=== PATIENT | male | born 1955 | race Caucasian/White ===

== ENCOUNTER 2016-06-02 15:23 | Inpatient (IN) ==
--- NOTE | 2016-06-02 15:47 | Emergency Department Note ---
Disposition Clinical Impression: DKA (diabetic ketoacidoses) Qualifiers: Diabetes mellitus type: other specified (including MARIBELL) Diabetes mellitus complication detail: without coma Qualified Code(s): E13.10 - Other specified diabetes mellitus with ketoacidosis without coma Disposition: Admitted As Inpatient Condition: Serious General Adult HPI - General Chief complaint: ED Recheck/Abnormal Lab/Rx Stated complaint: High blood sugar Time Seen by Provider: 06/02/16 15:35 Source: patient Limitations: no limitations Nursing Notes Reviewed: Yes Vital Signs Reviewed: Yes - History of Present Illness HPI Narrative: Mr. Fowler, a 60yo male, [place] [facility]not the [facility]) via EMS with CC: hyperglycemia. EMS glucometer returned with error (excess of 600). Patient is known DM insulin dependent. Patient states his blood glucose has been fine. Denies current hyperglycemia. He does not know why the ambulance brought him here. PMH: CVA, DM. Habits: current everyday tobacco smoker. Remote use illicit substances and EtOH. Admits: hyperglycemia, thirst, emesis (non-bloody, non-bilious). Denies: fever, chills, chest pain, abdominal pain. Pain Scale: 0 - Related Data Home Medications Medication Instructions Recorded Confirmed Amlodipine [Norvasc] 5 mg PO DAILY 06/02/16 06/02/16 Folic Acid 2 mg PO DAILY 06/02/16 06/02/16 Gabapentin [Neurontin] 300 mg PO TID 06/02/16 06/02/16 Insulin Glargine [Lantus] 45 unit SQ HS 06/02/16 06/02/16 Isoniazid [Inh] 300 mg PO DAILY 06/02/16 06/02/16 Metformin HCl [Glucophage] 1,000 mg PO BIDWM 06/02/16 06/02/16 Pyridoxine (B-6) [Vitamin B-6] 50 mg PO DAILY 06/02/16 06/02/16 Thiamine (B-1) [Vitamin B-1] 100 mg PO DAILY 06/02/16 06/02/16 Allergies Allergy/AdvReac Type Severity Reaction Status Date / Time tape Allergy Blister Uncoded 06/02/16 15:37 All systems ED: reviewed and negative except as stated. (as per HPI) Past Medical History - Past Medical History Medical history: Reports: CVA, diabetes Psychiatric history: Reports: no psych history - Social History Smoking Status: Current every day smoker Smokeless Tobacco Status: No Alcohol use: Reports: unknown Drug use: Reports: unknown Physical Exam General: Patient is alert, oriented to self and location but not to situation or time, and in no acute distress. Evidence of emesis on patient's portillo and foot. HEENT: No facial asymmetry. Head is normocephalic and atraumatic. Trachea midline. Oral mucosa tacky. Cardiovascular: Heart regular rate and rhythm without clicks, rubs, gallops, or murmurs. No JVD. PMI nondisplaced. Respiratory: Symmetric chest rise with good respiratory effort. Bilateral breath sounds are clear without wheezing, crackles, or rhonchi. Abdomen: Obese. Bowel sounds present normoactive x-4 quadrants. Abdomen is soft, nondistended, and nontender. Psych: Patient's affect is appropriate for situation. - General Limitations: no limitations General appearance: alert Course Course Narrative: Will IV rehydrate the patient and perform extensive workup as we have no prior medical records on him. Patient does have altered mental status, the chronicity of which is unknown. No evidence of trauma. Source of infection unfound at this time. He [place] the [place] [facility]. He did not present to the [place] [facility]. He is eating ice chips and has vomited. EKG unremarkable. 16:30 Spoke with nursing as labwork has not been drawn. Nursing called out to lab. 17:30 Called lab. They have not received patient's serum. They will page lab draw stat. FLUID TOTALS (18:34) Liter #3 is infusing at this time. 1L via EMS 2L in ER Patient's lab work is returning. He is in DKA - VBG pH 7.14, (+) serum ketones. Serum glucose 1190. K 5.1. Will begin insulin drip at 5u/hr. Spoke with Dr. Benson, who agrees to accept the patient. Vital Signs Temperature 98.9 F 06/02/16 15:28 Pulse Rate 105 06/02/16 15:28 Respiratory Rate 18 06/02/16 15:28 Blood Pressure 138/87 06/02/16 15:28 O2 Sat by Pulse Oximetry 93 L 06/02/16 15:28 Temperature 98.9 F 06/02/16 15:28 Pulse Rate 88 06/02/16 16:54 Respiratory Rate 18 06/02/16 20:05 Blood Pressure 0/0 06/02/16 20:05 O2 Sat by Pulse Oximetry 94 L 06/02/16 16:54 Oxygen Delivery Oxygen Delivery Room Air Medical Decision Making - Lab Data Result diagrams: 06/02/16 18:07 06/02/16 17:46 Lab Results 06/02/16 06/02/16 06/02/16 Range/Units 16:25 16:26 17:46 WBC (4.3-11.1) K/mcL RBC (4.19-5.50) M/mcL Hgb (12.9-16.9) g/dL Hct (37.5-50.1) % MCV (83.0-100.0) fL MCH (28.0-33.3) pg MCHC (31.6-35.5) g/dL RDW (11.5-14.5) % Plt Count (140-400) K/mcL MPV (9.4-12.4) fL Immature Gran % (0-4) % Seg Neutrophils % % Lymphocytes % % Monocytes % % Eosinophils % % Basophils % % Neutrophils # (1.6-8.9) K/mcL Lymphocytes # (0.6-4.6) K/mcL Monocytes # (0.0-1.3) K/mcL Eosinophils # (0.0-0.6) K/mcL Basophils # (0.0-0.2) K/mcL VBG pH (7.32-7.42) pH Units VBG pCO2 (41-51) mmHg VBG pO2 (25-40) mmHg VBG HCO3 (21-27) mEq/L Sodium 133 L (136-145) mEq/L Potassium 5.1 H (3.5-4.5) mEq/L Chloride 100 (98-109) mEq/L Carbon Dioxide 20 (19-29) mEq/L BUN 15 (8-26) mg/dL Creatinine 2.51 H (0.72-1.25) mg/dL Est GFR ( Amer) 32 L (> 60) Est GFR (Non-Af Amer) 26 L (> 60) BUN/Creatinine Ratio 6 (6-26) Glucose 1190 H* (70-99) mg/dL POC Glucose > 600 H* > 600 H* (58-89) Calculated Osmolality 337 H (280-300) Calcium 9.7 (8.6-10.8) mg/dL Phosphorus 4.3 (2.3-4.7) mg/dL Magnesium 2.1 (1.6-2.6) mg/dL Total Bilirubin 0.8 (0.2-1.2) mg/dL AST 13 (5-34) Units/L ALT 22 (0-55) Units/L Alkaline Phosphatase 273 H (38-126) Units/L Troponin I (0-0.03) ng/mL Serum Total Protein 7.0 (6.0-8.3) g/dL Albumin 3.9 (3.5-5.0) g/dL Globulin 3.1 (2.4-3.5) g/dL Albumin/Globulin Ratio 1.3 (1.1-2.2) Beta-Hydroxybutyric Acd > 2.00 H (0.02-0.27) mmol/L Urine Color (Yellow) Urine Clarity (Clear) Urine pH (5.0-8.0) pH Units Ur Specific [place] (1.010-1.025) Urine Protein (Neg-Trace) mg/dL Urine Glucose (UA) (Normal) mg/dL Urine Ketones (Negative) mg/dL Urine Blood (Negative) Urine Nitrite (Negative) Urine Bilirubin (Negative) Urine Urobilinogen (Normal) mg/dL Ur Leukocyte Esterase (Negative) Urine Microscopic RBC (0-3) per hpf Urine Microscopic WBC (0-3) per hpf Ur Squamous Epith Cells (None-Few) per lpf Urine Bacteria (None-Few) per hpf Hyaline Casts (None-Few) per lpf Ur Culture Indicated? (NO) Urine Opiates Screen (Uqdfko=556) ng/mL Ur Barbiturates Screen (Oukyln=372) ng/mL Ur Phencyclidine Scrn (Cutoff=25) ng/mL Ur Amphetamines Screen (Hqwjbl=2638) ng/mL U Benzodiazepines Scrn (Zecfbe=338) ng/mL Urine Cocaine Screen (Cutoff= 300) ng/mL U Marijuana (THC) Screen (Cutoff = 50) ng/mL Ethyl Alcohol (0-10) mg/dL 02/16/17 02/16/17 02/16/17 Range/Units 17:46 17:46 17:46 WBC (4.3-11.1) K/mcL RBC (4.19-5.50) M/mcL Hgb (12.9-16.9) g/dL Hct (37.5-50.1) % MCV (83.0-100.0) fL MCH (28.0-33.3) pg MCHC (31.6-35.5) g/dL RDW (11.5-14.5) % Plt Count (140-400) K/mcL MPV (9.4-12.4) fL Immature Gran % (0-4) % Seg Neutrophils % % Lymphocytes % % Monocytes % % Eosinophils % % Basophils % % Neutrophils # (1.6-8.9) K/mcL Lymphocytes # (0.6-4.6) K/mcL Monocytes # (0.0-1.3) K/mcL Eosinophils # (0.0-0.6) K/mcL Basophils # (0.0-0.2) K/mcL VBG pH 7.18 L* (7.32-7.42) pH Units VBG pCO2 63 H (41-51) mmHg VBG pO2 21 L (25-40) mmHg VBG HCO3 23.5 (21-27) mEq/L Sodium (136-145) mEq/L Potassium (3.5-4.5) mEq/L Chloride (98-109) mEq/L Carbon Dioxide (19-29) mEq/L BUN (8-26) mg/dL Creatinine (0.72-1.25) mg/dL Est GFR ( Amer) (> 60) Est GFR (Non-Af Amer) (> 60) BUN/Creatinine Ratio (6-26) Glucose (70-99) mg/dL POC Glucose (58-89) Calculated Osmolality (280-300) Calcium (8.6-10.8) mg/dL Phosphorus (2.3-4.7) mg/dL Magnesium (1.6-2.6) mg/dL Total Bilirubin (0.2-1.2) mg/dL AST (5-34) Units/L ALT (0-55) Units/L Alkaline Phosphatase (38-126) Units/L Troponin I 0.00 (0-0.03) ng/mL Serum Total Protein (6.0-8.3) g/dL Albumin (3.5-5.0) g/dL Globulin (2.4-3.5) g/dL Albumin/Globulin Ratio (1.1-2.2) Beta-Hydroxybutyric Acd (0.02-0.27) mmol/L Urine Color (Yellow) Urine Clarity (Clear) Urine pH (5.0-8.0) pH Units Ur Specific [place] (1.010-1.025) Urine Protein (Neg-Trace) mg/dL Urine Glucose (UA) (Normal) mg/dL Urine Ketones (Negative) mg/dL Urine Blood (Negative) Urine Nitrite (Negative) Urine Bilirubin (Negative) Urine Urobilinogen (Normal) mg/dL Ur Leukocyte Esterase (Negative) Urine Microscopic RBC (0-3) per hpf Urine Microscopic WBC (0-3) per hpf Ur Squamous Epith Cells (None-Few) per lpf Urine Bacteria (None-Few) per hpf Hyaline Casts (None-Few) per lpf Ur Culture Indicated? (NO) Urine Opiates Screen (Rgojll=197) ng/mL Ur Barbiturates Screen (Hmeydg=720) ng/mL Ur Phencyclidine Scrn (Cutoff=25) ng/mL Ur Amphetamines Screen (Ibwdud=0899) ng/mL U Benzodiazepines Scrn (Qzfdle=111) ng/mL Urine Cocaine Screen (Cutoff= 300) ng/mL U Marijuana (THC) Screen (Cutoff = 50) ng/mL Ethyl Alcohol < 10 (0-10) mg/dL 06/02/16 06/02/16 06/02/16 Range/Units 18:07 18:30 18:30 WBC 17.3 H (4.3-11.1) K/mcL RBC 4.59 (4.19-5.50) M/mcL Hgb 14.1 (12.9-16.9) g/dL Hct 42.1 (37.5-50.1) % MCV 91.7 (83.0-100.0) fL MCH 30.7 (28.0-33.3) pg MCHC 33.5 (31.6-35.5) g/dL RDW 13.1 (11.5-14.5) % Plt Count 299 (140-400) K/mcL MPV 11.5 (9.4-12.4) fL Immature Gran % 0.6 (0-4) % Seg Neutrophils % 90.0 % Lymphocytes % 4.5 % Monocytes % 4.6 % Eosinophils % 0.0 % Basophils % 0.3 % Neutrophils # 15.6 H (1.6-8.9) K/mcL Lymphocytes # 0.8 (0.6-4.6) K/mcL Monocytes # 0.8 (0.0-1.3) K/mcL Eosinophils # 0.0 (0.0-0.6) K/mcL Basophils # 0.1 (0.0-0.2) K/mcL VBG pH (7.32-7.42) pH Units VBG pCO2 (41-51) mmHg VBG pO2 (25-40) mmHg VBG HCO3 (21-27) mEq/L Sodium (136-145) mEq/L Potassium (3.5-4.5) mEq/L Chloride (98-109) mEq/L Carbon Dioxide (19-29) mEq/L BUN (8-26) mg/dL Creatinine (0.72-1.25) mg/dL Est GFR ( Amer) (> 60) Est GFR (Non-Af Amer) (> 60) BUN/Creatinine Ratio (6-26) Glucose (70-99) mg/dL POC Glucose (58-89) Calculated Osmolality (280-300) Calcium (8.6-10.8) mg/dL Phosphorus (2.3-4.7) mg/dL Magnesium (1.6-2.6) mg/dL Total Bilirubin (0.2-1.2) mg/dL AST (5-34) Units/L ALT (0-55) Units/L Alkaline Phosphatase (38-126) Units/L Troponin I (0-0.03) ng/mL Serum Total Protein (6.0-8.3) g/dL Albumin (3.5-5.0) g/dL Globulin (2.4-3.5) g/dL Albumin/Globulin Ratio (1.1-2.2) Beta-Hydroxybutyric Acd (0.02-0.27) mmol/L Urine Color Yellow (Yellow) Urine Clarity Clear (Clear) Urine pH 6.0 (5.0-8.0) pH Units Ur Specific [place] <= 1.005 L (1.010-1.025) Urine Protein Negative (Neg-Trace) mg/dL Urine Glucose (UA) >=1000 H (Normal) mg/dL Urine Ketones 15 H (Negative) mg/dL Urine Blood Trace-lysed H (Negative) Urine Nitrite Negative (Negative) Urine Bilirubin Negative (Negative) Urine Urobilinogen Normal (Normal) mg/dL Ur Leukocyte Esterase Negative (Negative) Urine Microscopic RBC 0-3 (0-3) per hpf Urine Microscopic WBC 0-3 (0-3) per hpf Ur Squamous Epith Cells Moderate H (None-Few) per lpf Urine Bacteria None Seen (None-Few) per hpf Hyaline Casts None Seen (None-Few) per lpf Ur Culture Indicated? NO (NO) Urine Opiates Screen Negative (Vcrrux=356) ng/mL Ur Barbiturates Screen Negative (Thxqmq=234) ng/mL Ur Phencyclidine Scrn Negative (Cutoff=25) ng/mL Ur Amphetamines Screen Negative (Fdzake=4042) ng/mL U Benzodiazepines Scrn Negative (Eikzed=919) ng/mL Urine Cocaine Screen Negative (Cutoff= 300) ng/mL U Marijuana (THC) Screen Negative (Cutoff = 50) ng/mL Ethyl Alcohol (0-10) mg/dL - EKG Data EKG #1 EKG attestation: Yes I reviewed and interpreted this EKG. EKG results narrative: EKG dated May interpreted as sinus tachycardia with rate of 106. Normal intervals with [place] 162, QRS 99, QT/QTc 348/410. Left axis. Non-specific STT changes. no previous EKG for comparison.
--- NOTE | 2016-06-02 15:52 | Emergency Department Note ---
START Narrative - START START: 60-year-old male with past medical history of diabetes and psychiatric disease presents from psychiatric inpatient facility at the [facility] in [place] for blood sugar that read greater than 620 of care glucose. Patient states that he feels fine and has no complaints and he does not know why he is here. He does have dried emesis in his portillo as well as on his foot so he apparently vomited. He states he does not believe that he vomited. Otherwise, the patient is nontoxic appearing. He has mildly dry mucous membranes. He is not tachypneic. He has no signs of injury. Heart sounds are normal. Lungs are clear. Abdominal exam is benign. Abdomen soft, nontender, and without rigidity or guarding.
[2016-06-02] MEDS ORDERED: Ondansetron 4 MG/2 ML VIAL IV ONE (16:07)
[2016-06-02] MEDS: 0.9 % Sodium Chloride 1,000 ML IVC SCH ×4 (16:28→22:10)
[2016-06-02 18:03] LABS: VBG HCO3 23.5 mEq/L (21-27)
[2016-06-02 18:04] LABS: Beta-Hydroxybutyric Acid > 2.00 mmol/L (0.02-0.27)
[2016-06-02 18:05] LABS: VBG PH 7.18 pH Units (7.32-7.42)
[2016-06-02 18:13] LABS: Alanine Aminotransferase 22 Units/L (0-55); Albumin 3.9 g/dL (3.5-5.0); Albumin/Globulin Ratio 1.3 (1.1-2.2); Alkaline Phosphatase 273 Units/L (38-126); Aspartate Amino Transferase 13 Units/L (5-34); BUN/Creatinine Ratio 6 (6-26); Bilirubin,Total 0.8 mg/dL (0.2-1.2); Blood Urea Nitrogen 15 mg/dL (8-26); Calcium 9.7 mg/dL (8.6-10.8); Carbon Dioxide 20 mEq/L (19-29); Chloride 100 mEq/L (98-109); Globulin 3.1 g/dL (2.4-3.5); Magnesium 2.1 mg/dL (1.6-2.6); Phosphorous 4.3 mg/dL (2.3-4.7); Potassium 5.1 mEq/L (3.5-4.5); Sodium 133 mEq/L (136-145); eGFR For African Americans 32 (> 60); eGFR For Non-African Americans 26 (> 60)
[2016-06-02 18:23] LABS: Osmolality,Calculated 337 (280-300)
[2016-06-02 18:24] LABS: Basophils # 0.1 K/mcL (0.0-0.2); Basophils % 0.3 %; Hematocrit 42.1 % (37.5-50.1); Hemoglobin 14.1 g/dL (12.9-16.9); Immature Granulocytes % 0.6 % (0-4); Lymphocytes # 0.8 K/mcL (0.6-4.6); Lymphocytes % 4.5 %; Mean Corpuscular HGB Conc 33.5 g/dL (31.6-35.5); Mean Corpuscular Hemoglobin 30.7 pg (28.0-33.3); Mean Corpuscular Volume 91.7 fL (83.0-100.0); Mean Platelet Volume 11.5 fL (9.4-12.4); Monocytes # 0.8 K/mcL (0.0-1.3); Monocytes % 4.6 %; Neutrophils # 15.6 K/mcL (1.6-8.9); Platelet Count 299 K/mcL (140-400); Red Blood Count 4.59 M/mcL (4.19-5.50); Red Cell Distribution Width 13.1 % (11.5-14.5)
[2016-06-02 18:30] LABS: Glucose 1190 mg/dL (70-99)
--- NOTE | 2016-06-02 18:35 | Emergency Department Note ---
Disposition Clinical Impression: DKA (diabetic ketoacidoses) Disposition: Admitted As Inpatient Condition: Serious General Adult HPI - General Chief complaint: ED Recheck/Abnormal Lab/Rx Stated complaint: High blood sugar Time Seen by Provider: 06/02/16 15:35 Source: patient Limitations: no limitations - History of Present Illness Pain Scale: 0 - Related Data Home Medications Medication Instructions Recorded Confirmed Amlodipine [Norvasc] 5 mg PO DAILY 06/02/16 06/02/16 Folic Acid 2 mg PO DAILY 06/02/16 06/02/16 Gabapentin [Neurontin] 300 mg PO TID 06/02/16 06/02/16 Insulin Glargine [Lantus] 45 unit SQ HS 06/02/16 06/02/16 Isoniazid [Inh] 300 mg PO DAILY 06/02/16 06/02/16 Metformin HCl [Glucophage] 1,000 mg PO BIDWM 06/02/16 06/02/16 Pyridoxine (B-6) [Vitamin B-6] 50 mg PO DAILY 06/02/16 06/02/16 Thiamine (B-1) [Vitamin B-1] 100 mg PO DAILY 06/02/16 06/02/16 Allergies Allergy/AdvReac Type Severity Reaction Status Date / Time tape Allergy Blister Uncoded 06/02/16 15:37 Past Medical History - Past Medical History Medical history: Reports: CVA, diabetes Psychiatric history: Reports: no psych history - Social History Smoking Status: Current every day smoker Smokeless Tobacco Status: No Alcohol use: Reports: unknown Drug use: Reports: unknown Physical Exam - General Limitations: no limitations General appearance: alert Course - Reevaluation(s) Reevaluation #1: I saw the patient with the resident's, 'linus Rubio. Patient presents with vomiting and a reported elevated blood sugar. Here in the department he has altered mental status, the chronicity of which we do not know. He is trying to eat ice chips but did vomit here in the emergency department. The rest of his physical exam does not show any obvious acute medical issues. His belly exam is benign. Lab workup however shows a glucose of over 1000 and a pH of 7.13. Ketones are also elevated. This is diabetic ketoacidosis in a known diabetic. He has received 3 L of fluid from a so far. Will start the insulin drip now. He needs to be admitted to the hospital. We will be making that arrangement. His vital signs are good. He is watching TV and does not actually appear in any distress. Time: 18:37 Vital Signs Temperature 98.9 F 06/02/16 15:28 Pulse Rate 105 06/02/16 15:28 Respiratory Rate 18 06/02/16 15:28 Blood Pressure 138/87 06/02/16 15:28 O2 Sat by Pulse Oximetry 93 L 06/02/16 15:28 Temperature 97.6 F 06/02/16 20:28 Pulse Rate 87 06/02/16 20:28 Respiratory Rate 18 06/02/16 20:28 Blood Pressure 114/85 06/02/16 20:28 O2 Sat by Pulse Oximetry 97 06/02/16 20:28 Oxygen Delivery Oxygen Delivery Room Air Medical Decision Making - Lab Data Result diagrams: 06/02/16 18:07 06/02/16 17:46 Lab Results 06/02/16 06/02/16 06/02/16 Range/Units 16:25 16:26 17:46 WBC (4.3-11.1) K/mcL RBC (4.19-5.50) M/mcL Hgb (12.9-16.9) g/dL Hct (37.5-50.1) % MCV (83.0-100.0) fL MCH (28.0-33.3) pg MCHC (31.6-35.5) g/dL RDW (11.5-14.5) % Plt Count (140-400) K/mcL MPV (9.4-12.4) fL Immature Gran % (0-4) % Seg Neutrophils % % Lymphocytes % % Monocytes % % Eosinophils % % Basophils % % Neutrophils # (1.6-8.9) K/mcL Lymphocytes # (0.6-4.6) K/mcL Monocytes # (0.0-1.3) K/mcL Eosinophils # (0.0-0.6) K/mcL Basophils # (0.0-0.2) K/mcL VBG pH (7.32-7.42) pH Units VBG pCO2 (41-51) mmHg VBG pO2 (25-40) mmHg VBG HCO3 (21-27) mEq/L Sodium 133 L (136-145) mEq/L Potassium 5.1 H (3.5-4.5) mEq/L Chloride 100 (98-109) mEq/L Carbon Dioxide 20 (19-29) mEq/L BUN 15 (8-26) mg/dL Creatinine 2.51 H (0.72-1.25) mg/dL Est GFR ( Amer) 32 L (> 60) Est GFR (Non-Af Amer) 26 L (> 60) BUN/Creatinine Ratio 6 (6-26) Glucose 1190 H* (70-99) mg/dL POC Glucose > 600 H* > 600 H* (58-89) Calculated Osmolality 337 H (280-300) Calcium 9.7 (8.6-10.8) mg/dL Phosphorus 4.3 (2.3-4.7) mg/dL Magnesium 2.1 (1.6-2.6) mg/dL Total Bilirubin 0.8 (0.2-1.2) mg/dL AST 13 (5-34) Units/L ALT 22 (0-55) Units/L Alkaline Phosphatase 273 H (38-126) Units/L Troponin I (0-0.03) ng/mL Serum Total Protein 7.0 (6.0-8.3) g/dL Albumin 3.9 (3.5-5.0) g/dL Globulin 3.1 (2.4-3.5) g/dL Albumin/Globulin Ratio 1.3 (1.1-2.2) Beta-Hydroxybutyric Acd > 2.00 H (0.02-0.27) mmol/L Urine Color (Yellow) Urine Clarity (Clear) Urine pH (5.0-8.0) pH Units Ur Specific [place] (1.010-1.025) Urine Protein (Neg-Trace) mg/dL Urine Glucose (UA) (Normal) mg/dL Urine Ketones (Negative) mg/dL Urine Blood (Negative) Urine Nitrite (Negative) Urine Bilirubin (Negative) Urine Urobilinogen (Normal) mg/dL Ur Leukocyte Esterase (Negative) Urine Microscopic RBC (0-3) per hpf Urine Microscopic WBC (0-3) per hpf Ur Squamous Epith Cells (None-Few) per lpf Urine Bacteria (None-Few) per hpf Hyaline Casts (None-Few) per lpf Ur Culture Indicated? (NO) Urine Opiates Screen (Psalfn=227) ng/mL Ur Barbiturates Screen (Rlosna=239) ng/mL Ur Phencyclidine Scrn (Cutoff=25) ng/mL Ur Amphetamines Screen (Oadzan=7452) ng/mL U Benzodiazepines Scrn (Hkafdd=805) ng/mL Urine Cocaine Screen (Cutoff= 300) ng/mL U Marijuana (THC) Screen (Cutoff = 50) ng/mL Ethyl Alcohol (0-10) mg/dL 06/02/16 06/02/16 06/02/16 Range/Units 17:46 17:46 17:46 WBC (4.3-11.1) K/mcL RBC (4.19-5.50) M/mcL Hgb (12.9-16.9) g/dL Hct (37.5-50.1) % MCV (83.0-100.0) fL MCH (28.0-33.3) pg MCHC (31.6-35.5) g/dL RDW (11.5-14.5) % Plt Count (140-400) K/mcL MPV (9.4-12.4) fL Immature Gran % (0-4) % Seg Neutrophils % % Lymphocytes % % Monocytes % % Eosinophils % % Basophils % % Neutrophils # (1.6-8.9) K/mcL Lymphocytes # (0.6-4.6) K/mcL Monocytes # (0.0-1.3) K/mcL Eosinophils # (0.0-0.6) K/mcL Basophils # (0.0-0.2) K/mcL VBG pH 7.18 L* (7.32-7.42) pH Units VBG pCO2 63 H (41-51) mmHg VBG pO2 21 L (25-40) mmHg VBG HCO3 23.5 (21-27) mEq/L Sodium (136-145) mEq/L Potassium (3.5-4.5) mEq/L Chloride (98-109) mEq/L Carbon Dioxide (19-29) mEq/L BUN (8-26) mg/dL Creatinine (0.72-1.25) mg/dL Est GFR ( Amer) (> 60) Est GFR (Non-Af Amer) (> 60) BUN/Creatinine Ratio (6-26) Glucose (70-99) mg/dL POC Glucose (58-89) Calculated Osmolality (280-300) Calcium (8.6-10.8) mg/dL Phosphorus (2.3-4.7) mg/dL Magnesium (1.6-2.6) mg/dL Total Bilirubin (0.2-1.2) mg/dL AST (5-34) Units/L ALT (0-55) Units/L Alkaline Phosphatase (38-126) Units/L Troponin I 0.00 (0-0.03) ng/mL Serum Total Protein (6.0-8.3) g/dL Albumin (3.5-5.0) g/dL Globulin (2.4-3.5) g/dL Albumin/Globulin Ratio (1.1-2.2) Beta-Hydroxybutyric Acd (0.02-0.27) mmol/L Urine Color (Yellow) Urine Clarity (Clear) Urine pH (5.0-8.0) pH Units Ur Specific [place] (1.010-1.025) Urine Protein (Neg-Trace) mg/dL Urine Glucose (UA) (Normal) mg/dL Urine Ketones (Negative) mg/dL Urine Blood (Negative) Urine Nitrite (Negative) Urine Bilirubin (Negative) Urine Urobilinogen (Normal) mg/dL Ur Leukocyte Esterase (Negative) Urine Microscopic RBC (0-3) per hpf Urine Microscopic WBC (0-3) per hpf Ur Squamous Epith Cells (None-Few) per lpf Urine Bacteria (None-Few) per hpf Hyaline Casts (None-Few) per lpf Ur Culture Indicated? (NO) Urine Opiates Screen (Nmiuvo=108) ng/mL Ur Barbiturates Screen (Bivaeb=194) ng/mL Ur Phencyclidine Scrn (Cutoff=25) ng/mL Ur Amphetamines Screen (Llxeqx=5295) ng/mL U Benzodiazepines Scrn (Aaiwyh=981) ng/mL Urine Cocaine Screen (Cutoff= 300) ng/mL U Marijuana (THC) Screen (Cutoff = 50) ng/mL Ethyl Alcohol < 10 (0-10) mg/dL 06/02/16 06/02/16 06/02/16 Range/Units 18:07 18:30 18:30 WBC 17.3 H (4.3-11.1) K/mcL RBC 4.59 (4.19-5.50) M/mcL Hgb 14.1 (12.9-16.9) g/dL Hct 42.1 (37.5-50.1) % MCV 91.7 (83.0-100.0) fL MCH 30.7 (28.0-33.3) pg MCHC 33.5 (31.6-35.5) g/dL RDW 13.1 (11.5-14.5) % Plt Count 299 (140-400) K/mcL MPV 11.5 (9.4-12.4) fL Immature Gran % 0.6 (0-4) % Seg Neutrophils % 90.0 % Lymphocytes % 4.5 % Monocytes % 4.6 % Eosinophils % 0.0 % Basophils % 0.3 % Neutrophils # 15.6 H (1.6-8.9) K/mcL Lymphocytes # 0.8 (0.6-4.6) K/mcL Monocytes # 0.8 (0.0-1.3) K/mcL Eosinophils # 0.0 (0.0-0.6) K/mcL Basophils # 0.1 (0.0-0.2) K/mcL VBG pH (7.32-7.42) pH Units VBG pCO2 (41-51) mmHg VBG pO2 (25-40) mmHg VBG HCO3 (21-27) mEq/L Sodium (136-145) mEq/L Potassium (3.5-4.5) mEq/L Chloride (98-109) mEq/L Carbon Dioxide (19-29) mEq/L BUN (8-26) mg/dL Creatinine (0.72-1.25) mg/dL Est GFR ( Amer) (> 60) Est GFR (Non-Af Amer) (> 60) BUN/Creatinine Ratio (6-26) Glucose (70-99) mg/dL POC Glucose (58-89) Calculated Osmolality (280-300) Calcium (8.6-10.8) mg/dL Phosphorus (2.3-4.7) mg/dL Magnesium (1.6-2.6) mg/dL Total Bilirubin (0.2-1.2) mg/dL AST (5-34) Units/L ALT (0-55) Units/L Alkaline Phosphatase (38-126) Units/L Troponin I (0-0.03) ng/mL Serum Total Protein (6.0-8.3) g/dL Albumin (3.5-5.0) g/dL Globulin (2.4-3.5) g/dL Albumin/Globulin Ratio (1.1-2.2) Beta-Hydroxybutyric Acd (0.02-0.27) mmol/L Urine Color Yellow (Yellow) Urine Clarity Clear (Clear) Urine pH 6.0 (5.0-8.0) pH Units Ur Specific Greer <= 1.005 L (1.010-1.025) Urine Protein Negative (Neg-Trace) mg/dL Urine Glucose (UA) >=1000 H (Normal) mg/dL Urine Ketones 15 H (Negative) mg/dL Urine Blood Trace-lysed H (Negative) Urine Nitrite Negative (Negative) Urine Bilirubin Negative (Negative) Urine Urobilinogen Normal (Normal) mg/dL Ur Leukocyte Esterase Negative (Negative) Urine Microscopic RBC 0-3 (0-3) per hpf Urine Microscopic WBC 0-3 (0-3) per hpf Ur Squamous Epith Cells Moderate H (None-Few) per lpf Urine Bacteria None Seen (None-Few) per hpf Hyaline Casts None Seen (None-Few) per lpf Ur Culture Indicated? NO (NO) Urine Opiates Screen Negative (Cdkwax=674) ng/mL Ur Barbiturates Screen Negative (Ttwgkg=860) ng/mL Ur Phencyclidine Scrn Negative (Cutoff=25) ng/mL Ur Amphetamines Screen Negative (Beihiq=9704) ng/mL U Benzodiazepines Scrn Negative (Ecchwc=588) ng/mL Urine Cocaine Screen Negative (Cutoff= 300) ng/mL U Marijuana (THC) Screen Negative (Cutoff = 50) ng/mL Ethyl Alcohol (0-10) mg/dL Attestation Statement - Attestation Attestation: I, Dr. Shelby, examined this patient [id number] and my medical decision- making was reviewed with Drs. Pearson and Lam, Resident Physician. I agree with the documented findings, disposition and treatment plan as described except to the extent set forth below. Please see my progress notes for details.
[2016-06-02] MEDS ORDERED: Insulin Human Regular 100 UNIT in 0.9 % Sodium Chloride 100 ML IVC SCH ×3 (18:45→23:45)
[2016-06-02 18:59] LABS: Bilirubin,Urine Negative (Negative); Blood,Urine Trace-lysed (Negative); Clarity,Urine Clear (Clear); Color,Urine Yellow (Yellow); Glucose,Urine (UA) >=1000 mg/dL (Normal); Ketones,Urine 15 mg/dL (Negative); Leukocyte Esterase,Urine Negative (Negative); Nitrite,Urine Negative (Negative); Protein,Urine Negative (Neg-Trace); Specific Gravity,Urine <= 1.005 (1.010-1.025); Urobilinogen,Urine Normal (Normal)
[2016-06-02 19:00] LABS: Amphetamine Screen,Urine Negative ng/mL (Cutoff=1000); Barbiturate Screen,Urine Negative ng/mL (Cutoff=200); Benzodiazepines Screen,Urine Negative ng/mL (Cutoff=200); Cannabinoid Screen,Urine Negative ng/mL (Cutoff = 50); Cocaine Screen,Urine Negative ng/mL (Cutoff= 300); Opiate Screen,Urine Negative ng/mL (Cutoff=300); Phencyclidine Screen,Urine Negative ng/mL (Cutoff=25)
[2016-06-02 19:01] LABS: Bacteria,Urine None Seen per hpf (None-Few); Hyaline Casts,Urine None Seen per lpf (None-Few); RBC,Urine 0-3 per hpf (0-3); Squamous Epithelial Cell,Urine Moderate per lpf (None-Few); WBC,Urine 0-3 per hpf (0-3)
[2016-06-02] MEDS ORDERED: Insulin LISPRO 300 UNITS/3 ML VIAL SQ PRN (21:06)
[2016-06-02] MEDS ORDERED: *HR* Dextrose 50 % in Water (Syg) 50 ML SYRINGE IVP PRN (21:06)
[2016-06-02] MEDS ORDERED: Ondansetron 4 MG/2 ML VIAL IVP PRN (21:11)
[2016-06-02] MEDS ORDERED: Acetaminophen 325 MG TABLET PO PRN (21:11)
[2016-06-02] MEDS ORDERED: Naloxone 0.4 MG/ML INJ IVP PRN (21:11)
[2016-06-02] MEDS ORDERED: 0.9 % Sodium Chloride 1,000 ML IV SCH (21:15)
--- NOTE | 2016-06-02 21:18 | Internal Med History&Physical ---
Date of Encounter: 06/03/16 Time of Encounter: 20:00 Assessment and Plan (1) Essential hypertension Current visit: Yes Status: Acute Continue Norvasc. (2) Tobacco abuse disorder Current visit: Yes Status: Acute I have counseled patient on smoking cessation. (3) KONG (acute kidney injury) Current visit: Yes Status: Acute We will give a bolus of IV fluids and continue with normal saline. Avoid nephrotoxins. Monitor kidney function. (4) CKD (chronic kidney disease) stage 3, GFR 30-59 ml/min Current visit: Yes Status: Acute (5) Metabolic acidosis Current visit: Yes Status: Acute We will treat the cause of metabolic acidosis with IV insulin to reverse DKA. We will repeat VBG every 4 hours. If the pH drops below 7.10 will initiate sodium bicarbonate. (6) DKA (diabetic ketoacidoses) Current visit: Yes Status: Acute Patient is in severe DKA with blood glucose greater than 1000. He requires fluid resuscitation and IV insulin and careful monitoring and repletion of electrolytes as well as monitoring and correcting acid base disorders. We will initially initiate IV insulin drip per protocol at 0.1 units per kilogram per hour and titrate according to protocol. Monitor venous pH and add sodium bicarbonate if this continues to drop. The source of DKA is likely medication and diet noncompliance. There is no evidence of infection as a possible trigger for DKA. Urine tox screen was negative. I have counseled the patient regarding importance of diabetes diet and medication compliance. The patient is at high risk for morbidity mortality and complications due to IV insulin which requires hourly blood glucose monitoring and adjustment of infusional rate. Qualifiers: Diabetes mellitus type: type 2 Diabetes mellitus complication detail: without coma Qualified Code(s): E13.10 - Other specified diabetes mellitus with ketoacidosis without coma Internal Medicine - H&P: HPI Chief complaint: Weakness Admitted From: Emergency Dept Plans for Post Hospital Care: Home History of present illness: Mr. Fowler is a 60 year old male with past medical history significant for type 2 diabetes who is a very poor historian and says that he has had generalized weakness for the last 3 days, has been getting progressive. He noticed associated polyuria, no dysuria or frequency. Denies chest pain shortness of breath and fever. He never noticed elevated blood glucose at home and called EMS. A 10 point review of systems was negative except as above Family history was negative for premature coronary artery disease in both parents. Past Med Surg Social Fam HX - Past Medical History Medical history: CVA, diabetes Psychiatric history: no psych history - Past Surgical History Surgical History: no surgical history - Social History Smoking Status: Current every day smoker Smokeless Tobacco Status: No Alcohol use: unknown Drug use: unknown Internal Medicine - H&P: Meds Amlodipine [Norvasc] 5 mg PO DAILY 06/02/16 [History] Folic Acid 2 mg PO DAILY 06/02/16 [History] Gabapentin [Neurontin] 300 mg PO TID 06/02/16 [History] Insulin Glargine [Lantus] 45 unit SQ HS 06/02/16 [History] Isoniazid [Inh] 300 mg PO DAILY 06/02/16 [History] Metformin HCl [Glucophage] 1,000 mg PO BIDWM 06/02/16 [History] Pyridoxine (B-6) [Vitamin B-6] 50 mg PO DAILY 06/02/16 [History] Thiamine (B-1) [Vitamin B-1] 100 mg PO DAILY 06/02/16 [History] Allergies tape Allergy (Uncoded 06/02/16 15:37) Blister All Systems PM: A 10-system review of systems was performed and is negative for pertinent findings except as documented above in the HPI. - Constitutional Vitals: Temp Pulse Resp BP Pulse Ox 97.6 F 87 18 114/85 97 06/02/16 20:28 06/02/16 20:28 06/02/16 20:28 06/02/16 20:28 06/02/16 20:28 General appearance: Present: A&O X 3, no acute distress - Eye Eye exam: Present: PERRL, conjuntiva pink, sclera anicteric Pupils: Present: PERRL - Respiratory Respiratory exam: Present: CTAB. Absent: accessory muscle use, rales, rhonchi, wheezes - Cardiovascular Cardiovascular exam: Present: RRR, +S1, +S2. Absent: diastolic murmur, gallop, rubs, systolic murmur - GI/Abdominal GI/Abdominal exam: Present: normal bowel sounds, soft, no peritoneal signs. Absent: distended, tenderness - Extremities Exam Extremities exam: Present: pedal edema, warm, radial pulses palpable and symetrical. Absent: calf tenderness, cyanotic - Neurological Exam Neurological exam: Present: CN II-XII intact, oriented X3, no focal deficits. Absent: pronater drift, facial droop, speech deficit - Skin Skin exam: Present: dry, intact Internal Med - H&P Results - Labs CBC & Chem 7: 06/02/16 18:07 06/02/16 22:43
[2016-06-02 21:28] LABS: Calcium 9.3 mg/dL (8.6-10.8); Potassium 3.7 mEq/L (3.5-4.5)
[2016-06-02] MEDS ORDERED: 0.9 % Sodium Chloride w KCl 20 MEQ/1,000 ML MLS IVC ONE ×2 (21:37→23:54)
[2016-06-02] MEDS: Pantoprazole 40 MG VIAL IVP SCH (21:40)
[2016-06-02 22:52] LABS: VBG HCO3 23.1 mEq/L (21-27); VBG PH 7.2 pH Units (7.32-7.42)
[2016-06-02 23:02] LABS: Calcium 9.3 mg/dL (8.6-10.8); Potassium 3.4 mEq/L (3.5-4.5)
[2016-06-02] MEDS ORDERED: 0.9 % Sodium Chloride w KCl 20 MEQ/1,000 ML MLS IVC SCH (23:45)
[2016-06-02] MEDS ORDERED: D5% in 0.45% NACL w KCl 20 MEQ/1,000 ML MLS IVC PRN (23:58)
[2016-06-03 04:10] LABS: VBG HCO3 21.6 mEq/L (21-27); VBG PH 7.27 pH Units (7.32-7.42)
[2016-06-03 04:27] LABS: Albumin 3.3 g/dL (3.5-5.0); Albumin/Globulin Ratio 1.2 (1.1-2.2); Bilirubin,Total 0.5 mg/dL (0.2-1.2); Calcium 9.1 mg/dL (8.6-10.8); Globulin 2.7 g/dL (2.4-3.5); Magnesium 1.5 mg/dL (1.6-2.6); Potassium 3.1 mEq/L (3.5-4.5)
[2016-06-03 04:32] LABS: Basophils # 0.1 K/mcL (0.0-0.2); Basophils % 0.5 %; Eosinophils # 0.2 K/mcL (0.0-0.6); Eosinophils % 1.1 %; Hematocrit 37.2 % (37.5-50.1); Immature Granulocytes % 0.7 % (0-4); Lymphocytes # 2.7 K/mcL (0.6-4.6); Mean Corpuscular HGB Conc 33.6 g/dL (31.6-35.5); Mean Corpuscular Hemoglobin 29.7 pg (28.0-33.3); Mean Corpuscular Volume 88.4 fL (83.0-100.0); Monocytes # 1.3 K/mcL (0.0-1.3); Monocytes % 7.6 %; Neutrophils # 12.5 K/mcL (1.6-8.9); Platelet Count 302 K/mcL (140-400); Red Blood Count 4.21 M/mcL (4.19-5.50); Red Cell Distribution Width 12.7 % (11.5-14.5); Segmented Neutrophils % 74.1 %
[2016-06-03 04:54] LABS: Hemoglobin 12.5 g/dL (12.9-16.9)
[2016-06-03] MEDS: *HR* Heparin 5,000 UNIT/ML VIAL SQ SCH ×2 (05:40→17:01)
[2016-06-03] MEDS: 0.9 % Sodium Chloride 1,000 ML IVC SCH ×3 (07:32→18:00)
[2016-06-03] MEDS ORDERED: Insulin DETEMIR 100 UNIT/ML X5UNITS SQ ONE (08:25)
[2016-06-03 09:26] LABS: VBG HCO3 22.4 mEq/L (21-27); VBG PH 7.21 pH Units (7.32-7.42)
[2016-06-03] MEDS ORDERED: D5% in Water 1,000 ML IV PRN (09:36)
[2016-06-03] MEDS ORDERED: Dextrose Gel 15 GM PO PRN ×2 (09:36)
[2016-06-03 09:37] LABS: Calcium 9.2 mg/dL (8.6-10.8); Potassium 3.6 mEq/L (3.5-4.5)
[2016-06-03] MEDS: Pyridoxine (B-6) 50 MG TABLET PO SCH (10:28)
[2016-06-03] MEDS: amLODIPine 5 MG TABLET PO SCH (10:28)
[2016-06-03] MEDS: Thiamine (B-1) 100 MG TABLET PO SCH (10:28)
[2016-06-03] MEDS: Gabapentin 300 MG CAPSULE PO SCH ×3 (10:28→21:16)
[2016-06-03] MEDS: Folic Acid 1 MG TABLET PO SCH (10:29)
[2016-06-03] MEDS: Pantoprazole 40 MG VIAL IVP SCH (10:29)
[2016-06-03] MEDS: Insulin LISPRO 300 UNITS/3 ML VIAL SQ SCH ×3 (12:00→21:16)
--- NOTE | 2016-06-03 17:28 | Electrocardiograph Report ---
[place] [id number] Test Date: 2016-06-02 Pat Name: Louis Fowler Department: 103 Room: 2N13 Gender: M [employer]il Off Worker: : 1955 Requested By: Parish Fritz Order Number: [id number] Reading MD: Maegan Soto Measurements Intervals [place] Rate: 106 P: 31 TX: 162 QRS: 0 QRSD: 99 T: 59 QT: 348 QTc: 410 Interpretive Statements SINUS TACHYCARDIA NONSPECIFIC T-WAVE ABNORMALITY CONSIDER LEFT ATRIAL ENLARGEMENT ABNORMAL RHYTHM ECG Electronically Signed On 06-03-2016 17:26:16 EST by Maegan Soto
--- NOTE | 2016-06-03 17:30 | Internal Med Progress Note ---
Date of Encounter: 06/03/16 Time of Encounter: 10:00 - Assessment and plan (1) KONG (acute kidney injury) Current Visit: Yes Status: Acute Assessment and plan: Patient has a good intake. Will hydrated patient, f/u renal function. (2) CKD (chronic kidney disease) stage 3, GFR 30-59 ml/min Current Visit: Yes Status: Acute Assessment and plan: Due to diabetes. Follow-up renal function (3) DKA (diabetic ketoacidoses) Current Visit: Yes Status: Acute Assessment and plan: Resolved after treatment. Continue baseline the sliding scale insulin to control blood sugar. Qualifiers: Diabetes mellitus type: type 2 Diabetes mellitus complication detail: without coma Qualified Code(s): E13.10 - Other specified diabetes mellitus with ketoacidosis without coma (4) Essential hypertension Current Visit: Yes Status: Acute Assessment and plan: BP is stable continue home medication (5) Tobacco abuse disorder Current Visit: Yes Status: Acute Assessment and plan: Smoking cessation education (6) DVT prophylaxis Current Visit: Yes Status: Acute Assessment and plan: Heparin subcutaneously - Time Spent With Patient 25 - 35 minutes - Subjective Interval history: Patient is a 60-year-old male admitted for DKA, his past medical history is significant for type 2 diabetes, CKD, hypertension, and tobacco abuse. Patient was seen and examined. He is awake alert, oriented 3. Denies chest pain, shortness of breath, nausea vomiting, abdominal pain. Vitals are stable. His blood sugar level gets it down after insulin drip. AG closed. We will stop the insulin drip, started diet, keep patient on basal and sliding scale insulin. - Constitutional Vitals: Temp Pulse Resp BP Pulse Ox 98.2 F 77 16 125/78 97 06/03/16 15:34 06/03/16 15:44 06/03/16 15:34 06/03/16 15:34 06/03/16 15:34 General appearance: Present: A&O X 3, no acute distress - Head Head exam: Present: atraumatic, normocephalic - Eye Eye exam: Present: PERRL, conjuntiva pink, sclera anicteric Pupils: Present: PERRL - Neck Neck exam general surgery: Present: supple, trachea midline. Absent: lymphadenopathy - Respiratory Respiratory exam: Present: CTAB. Absent: accessory muscle use, rales, rhonchi, wheezes - Cardiovascular Cardiovascular exam: Present: RRR, +S1, +S2. Absent: diastolic murmur, gallop, rubs, systolic murmur - GI/Abdominal GI/Abdominal exam: Present: normal bowel sounds, soft, no peritoneal signs. Absent: distended, tenderness - Extremities Exam Extremities exam: Present: warm, radial pulses palpable and symetrical. Absent : calf tenderness, cyanotic, pedal edema - Neurological Exam Neurological exam: Present: CN II-XII intact, oriented X3, no focal deficits. Absent: pronater drift, facial droop, speech deficit - Skin Skin exam: Present: dry, intact Internal Medicine: Result - Labs CBC & Chem 7: 06/03/16 03:03 06/03/16 09:19 Labs: Short CBC 06/03/16 Range/Units 03:03 WBC 16.9 H (4.3-11.1) K/mcL Hgb 12.5 L D (12.9-16.9) g/dL Hct 37.2 L (37.5-50.1) % Plt Count 302 (140-400) K/mcL Neutrophils # 12.5 H (1.6-8.9) K/mcL BMP 06/02/16 06/02/16 06/03/16 21:06 22:43 03:03 Sodium 140 D 143 144 Potassium 3.7 D 3.4 L 3.1 L Chloride 107 111 H 116 H Carbon Dioxide 21 21 19 BUN 17 12 10 Creatinine 2.13 H 1.91 H 1.58 H Glucose 752 H* 647 H* 256 H Calcium 9.3 9.3 9.1 06/03/16 09:19 Sodium 144 Potassium 3.6 Chloride 116 H Carbon Dioxide 19 BUN 9 Creatinine 1.52 H Glucose 120 H Calcium 9.2 Liver Function 06/03/16 Range/Units 03:03 Total Bilirubin 0.5 (0.2-1.2) mg/dL AST 14 (5-34) Units/L ALT 16 (0-55) Units/L Alkaline Phosphatase 212 H (38-126) Units/L Albumin 3.3 L (3.5-5.0) g/dL Consult Discharge Plan - Plan [facility]errals: [facility]Primary Care Provider[facility] - 06/16/16 12:30 pm
[2016-06-03] MEDS: Nicotine 21 MG PATCH.TD24 TD SCH (20:10)
[2016-06-03] MEDS: Insulin DETEMIR 100 UNIT/ML X5UNITS SQ SCH (21:16)
[2016-06-04] MEDS: 0.9 % Sodium Chloride 1,000 ML IVC SCH (04:03)
[2016-06-04] MEDS: *HR* Heparin 5,000 UNIT/ML VIAL SQ SCH ×2 (06:22→16:55)
[2016-06-04 06:23] LABS: Basophils # 0.1 K/mcL (0.0-0.2); Basophils % 0.8 %; Eosinophils # 0.4 K/mcL (0.0-0.6); Eosinophils % 4.5 %; Hematocrit 37.7 % (37.5-50.1); Hemoglobin 11.8 g/dL (12.9-16.9); Immature Granulocytes % 0.4 % (0-4); Lymphocytes # 2.4 K/mcL (0.6-4.6); Mean Corpuscular HGB Conc 31.3 g/dL (31.6-35.5); Mean Corpuscular Hemoglobin 29.6 pg (28.0-33.3); Mean Platelet Volume 10.9 fL (9.4-12.4); Monocytes # 0.4 K/mcL (0.0-1.3); Monocytes % 4.9 %; Neutrophils # 5.6 K/mcL (1.6-8.9); Platelet Count 227 K/mcL (140-400); Red Blood Count 3.99 M/mcL (4.19-5.50); Red Cell Distribution Width 13.1 % (11.5-14.5); Segmented Neutrophils % 62.4 %
[2016-06-04 06:27] LABS: Mean Corpuscular Volume 94.5 fL (83.0-100.0)
[2016-06-04 06:39] LABS: Calcium 8.4 mg/dL (8.6-10.8)
[2016-06-04 06:55] LABS: Potassium 4.9 mEq/L (3.5-4.5)
[2016-06-04] MEDS: Gabapentin 300 MG CAPSULE PO SCH ×3 (07:46→20:42)
[2016-06-04] MEDS: Pyridoxine (B-6) 50 MG TABLET PO SCH (07:47)
[2016-06-04] MEDS: Folic Acid 1 MG TABLET PO SCH (07:47)
[2016-06-04] MEDS: Pantoprazole 40 MG VIAL IVP SCH (07:47)
[2016-06-04] MEDS: Thiamine (B-1) 100 MG TABLET PO SCH (07:47)
[2016-06-04] MEDS: Nicotine 21 MG PATCH.TD24 TD SCH (07:47)
[2016-06-04] MEDS: amLODIPine 5 MG TABLET PO SCH (07:47)
[2016-06-04] MEDS: Insulin LISPRO 300 UNITS/3 ML VIAL SQ SCH ×4 (07:55→20:43)
[2016-06-04] MEDS: Insulin DETEMIR 100 UNIT/ML X5UNITS SQ SCH ×3 (07:57→20:46)
--- NOTE | 2016-06-04 14:25 | Internal Med Progress Note ---
Date of Encounter: 06/04/16 Time of Encounter: 10:00 - Assessment and plan (1) KONG (acute kidney injury) Current Visit: Yes Status: Acute Assessment and plan: Patient has a good intake. Will cont hydrate patient, f/u renal function. His creatinine is at about his baseline now. (2) CKD (chronic kidney disease) stage 3, GFR 30-59 ml/min Current Visit: Yes Status: Acute Assessment and plan: Due to diabetes. Follow-up renal function (3) DKA (diabetic ketoacidoses) Current Visit: Yes Status: Acute Assessment and plan: Resolved after treatment. Continue baseline the sliding scale insulin to control blood sugar. Qualifiers: Diabetes mellitus type: type 2 Diabetes mellitus complication detail: without coma Qualified Code(s): E13.10 - Other specified diabetes mellitus with ketoacidosis without coma (4) Essential hypertension Current Visit: Yes Status: Acute Assessment and plan: BP is stable continue home medication (5) Tobacco abuse disorder Current Visit: Yes Status: Acute Assessment and plan: Smoking cessation education. On nicotine Patch (6) DVT prophylaxis Current Visit: Yes Status: Acute Assessment and plan: Heparin subcutaneously - Time Spent With Patient 25 - 35 minutes - Subjective Interval history: Patient is a 60-year-old male admitted for DKA, his past medical history is significant for type 2 diabetes, CKD, hypertension, and tobacco abuse. Patient was seen and examined. He is awake alert, oriented 3. Denies chest pain, shortness of breath, nausea vomiting, abdominal pain. Vitals are stable. His blood sugar level still high, will continueon sliding scale and increases basals insulin dose. Patient cannot tell how much insulin he injected by himself, he obviously need diabetic education. We will consult conservation educator. Also ask PT OT evaluation - Constitutional Vitals: Temp Pulse Resp BP Pulse Ox 97.8 F 82 18 121/90 97 06/04/16 11:56 06/04/16 11:56 06/04/16 11:56 06/04/16 11:56 06/04/16 11:56 General appearance: Present: A&O X 3, no acute distress - Head Head exam: Present: atraumatic, normocephalic - Eye Eye exam: Present: PERRL, conjuntiva pink, sclera anicteric Pupils: Present: PERRL - Neck Neck exam general surgery: Present: supple, trachea midline. Absent: lymphadenopathy - Respiratory Respiratory exam: Present: CTAB. Absent: accessory muscle use, rales, rhonchi, wheezes - Cardiovascular Cardiovascular exam: Present: RRR, +S1, +S2. Absent: diastolic murmur, gallop, rubs, systolic murmur - GI/Abdominal GI/Abdominal exam: Present: normal bowel sounds, soft, no peritoneal signs. Absent: distended, tenderness - Extremities Exam Extremities exam: Present: warm, radial pulses palpable and symetrical. Absent : calf tenderness, cyanotic, pedal edema - Neurological Exam Neurological exam: Present: CN II-XII intact, oriented X3, no focal deficits. Absent: pronater drift, facial droop, speech deficit - Skin Skin exam: Present: dry, intact Internal Medicine: Result - Labs CBC & Chem 7: 06/04/16 05:46 06/04/16 05:46 Labs: Short CBC 06/04/16 Range/Units 05:46 WBC 9.0 (4.3-11.1) K/mcL Hgb 11.8 L (12.9-16.9) g/dL Hct 37.7 (37.5-50.1) % Plt Count 227 (140-400) K/mcL Neutrophils # 5.6 (1.6-8.9) K/mcL BMP 06/04/16 05:46 Sodium 136 D Potassium 4.9 H D Chloride 110 H Carbon Dioxide 19 BUN 10 Creatinine 1.76 H Glucose 406 H Calcium 8.4 L Consult Discharge Plan - Plan [facility]errals: [facility] [Primary Care Provider] - 06/16/16 12:30 pm
[2016-06-05] MEDS: *HR* Heparin 5,000 UNIT/ML VIAL SQ SCH ×2 (05:50→18:30)
[2016-06-05 07:28] LABS: BUN/Creatinine Ratio 7 (6-26); Blood Urea Nitrogen 9 mg/dL (8-26); Calcium 8.7 mg/dL (8.6-10.8); Carbon Dioxide 18 mEq/L (19-29); Chloride 113 mEq/L (98-109); Glucose 255 mg/dL (70-99); Osmolality,Calculated 295 (280-300); Sodium 139 mEq/L (136-145); eGFR For African Americans > 60 (> 60); eGFR For Non-African Americans 53 (> 60)
[2016-06-05 08:08] LABS: Basophils % 0.6 %; Eosinophils # 0.6 K/mcL (0.0-0.6); Eosinophils % 8.2 %; Hematocrit 42.3 % (37.5-50.1); Immature Granulocytes % 0.6 % (0-4); Lymphocytes # 2.5 K/mcL (0.6-4.6); Lymphocytes % 35.3 %; Mean Corpuscular HGB Conc 32.4 g/dL (31.6-35.5); Mean Corpuscular Volume 92.6 fL (83.0-100.0); Mean Platelet Volume 11.8 fL (9.4-12.4); Monocytes # 0.3 K/mcL (0.0-1.3); Monocytes % 4.2 %; Neutrophils # 3.7 K/mcL (1.6-8.9); Platelet Count 232 K/mcL (140-400); Red Blood Count 4.57 M/mcL (4.19-5.50); Red Cell Distribution Width 13.2 % (11.5-14.5); Segmented Neutrophils % 51.1 %
[2016-06-05 08:16] LABS: Hemoglobin 13.7 g/dL (12.9-16.9)
[2016-06-05] MEDS: Insulin DETEMIR 100 UNIT/ML X5UNITS SQ SCH ×2 (08:18→21:00)
[2016-06-05] MEDS: Insulin LISPRO 300 UNITS/3 ML VIAL SQ SCH ×4 (08:18→21:00)
[2016-06-05] MEDS: Thiamine (B-1) 100 MG TABLET PO SCH (08:19)
[2016-06-05] MEDS: Pyridoxine (B-6) 50 MG TABLET PO SCH (08:19)
[2016-06-05] MEDS: Gabapentin 300 MG CAPSULE PO SCH ×3 (08:19→21:06)
[2016-06-05] MEDS: amLODIPine 5 MG TABLET PO SCH (08:19)
[2016-06-05] MEDS: Nicotine 21 MG PATCH.TD24 TD SCH (08:20)
[2016-06-05] MEDS: Folic Acid 1 MG TABLET PO SCH (08:20)
[2016-06-05 16:09] LABS: Amphetamines NEGATIVE ng/mL (Cutoff 30); Barbiturates NEGATIVE ng/mL (Cutoff 75); Benzodiazepines NEGATIVE ng/mL (Cutoff 75); Cocaine NEGATIVE ng/mL (Cutoff 30); Methadone NEGATIVE ng/mL (Cutoff 40); Methamphetamines NEGATIVE ng/mL (Cutoff 30); Opiates NEGATIVE ng/mL (Cutoff 30); Phencyclidine NEGATIVE ng/mL (Cutoff 15)
--- NOTE | 2016-06-05 16:48 | Internal Med Progress Note ---
Date of Encounter: 06/05/16 Time of Encounter: 10:00 - Assessment and plan (1) KOGN (acute kidney injury) Current Visit: Yes Status: Acute Assessment and plan: Patient has a good intake. Will cont hydrate patient, f/u renal function. His creatinine is at about his baseline now. (2) CKD (chronic kidney disease) stage 3, GFR 30-59 ml/min Current Visit: Yes Status: Acute Assessment and plan: Due to diabetes. Follow-up renal function (3) DKA (diabetic ketoacidoses) Current Visit: Yes Status: Acute Assessment and plan: Resolved after treatment. Continue baseline the sliding scale insulin to control blood sugar. Qualifiers: Diabetes mellitus type: type 2 Diabetes mellitus complication detail: without coma Qualified Code(s): E13.10 - Other specified diabetes mellitus with ketoacidosis without coma (4) Essential hypertension Current Visit: Yes Status: Acute Assessment and plan: BP is stable continue home medication (5) Tobacco abuse disorder Current Visit: Yes Status: Acute Assessment and plan: Smoking cessation education. On nicotine Patch (6) DVT prophylaxis Current Visit: Yes Status: Acute Assessment and plan: Heparin subcutaneously - Time Spent With Patient 25 - 35 minutes - Subjective Interval history: Patient is a 60-year-old male admitted for DKA, his past medical history is significant for type 2 diabetes, CKD, hypertension, and tobacco abuse. Patient was seen and examined. He is awake alert, oriented 3. Denies chest pain, shortness of breath, nausea vomiting, abdominal pain. Vitals are stable. His blood sugar level still high, will continueon sliding scale and increases basals insulin dose. Patient cannot tell how much insulin he injected by himself, he obviously need diabetic education. Patient has chock during Lunch. He has transient cough. We will change his diet to soft diet. Small evaluation in a.m. - Constitutional Vitals: Temp Pulse Resp BP Pulse Ox 97.4 F L 88 16 136/94 98 06/05/16 15:29 06/05/16 15:29 06/05/16 15:29 06/05/16 15:29 06/05/16 15:29 General appearance: Present: A&O X 3, no acute distress - Head Head exam: Present: atraumatic, normocephalic - Eye Eye exam: Present: PERRL, conjuntiva pink, sclera anicteric Pupils: Present: PERRL - Neck Neck exam general surgery: Present: supple, trachea midline. Absent: lymphadenopathy - Respiratory Respiratory exam: Present: CTAB. Absent: accessory muscle use, rales, rhonchi, wheezes - Cardiovascular Cardiovascular exam: Present: RRR, +S1, +S2. Absent: diastolic murmur, gallop, rubs, systolic murmur - GI/Abdominal GI/Abdominal exam: Present: normal bowel sounds, soft, no peritoneal signs. Absent: distended, tenderness - Extremities Exam Extremities exam: Present: warm, radial pulses palpable and symetrical. Absent : calf tenderness, cyanotic, pedal edema - Neurological Exam Neurological exam: Present: CN II-XII intact, oriented X3, no focal deficits. Absent: pronater drift, facial droop, speech deficit - Skin Skin exam: Present: dry, intact Internal Medicine: Result - Labs CBC & Chem 7: 06/05/16 06:21 06/05/16 06:21 Labs: Short CBC 06/05/16 Range/Units 06:21 WBC 7.2 (4.3-11.1) K/mcL Hgb 13.7 D (12.9-16.9) g/dL Hct 42.3 (37.5-50.1) % Plt Count 232 (140-400) K/mcL Neutrophils # 3.7 (1.6-8.9) K/mcL BMP 06/05/16 06:21 Sodium 139 Potassium 4.0 Chloride 113 H Carbon Dioxide 18 L BUN 9 Creatinine 1.37 H Glucose 255 H Calcium 8.7 Consult Discharge Plan - Plan [facility]errals: [facility] [Primary Care Provider] - 06/16/16 12:30 pm
[2016-06-06 04:49] LABS: Basophils % 0.5 %; Eosinophils # 0.5 K/mcL (0.0-0.6); Hematocrit 37.1 % (37.5-50.1); Immature Granulocytes % 0.8 % (0-4); Lymphocytes # 1.7 K/mcL (0.6-4.6); Lymphocytes % 22.9 %; Mean Corpuscular HGB Conc 31.8 g/dL (31.6-35.5); Mean Corpuscular Hemoglobin 29.5 pg (28.0-33.3); Mean Corpuscular Volume 92.8 fL (83.0-100.0); Mean Platelet Volume 11.1 fL (9.4-12.4); Monocytes # 0.4 K/mcL (0.0-1.3); Monocytes % 5.5 %; Neutrophils # 4.6 K/mcL (1.6-8.9); Platelet Count 208 K/mcL (140-400); Red Cell Distribution Width 13.1 % (11.5-14.5); Segmented Neutrophils % 63.3 %
[2016-06-06 04:54] LABS: Hemoglobin 11.8 g/dL (12.9-16.9)
[2016-06-06 05:11] LABS: BUN/Creatinine Ratio 10 (6-26); Blood Urea Nitrogen 13 mg/dL (8-26); Calcium 8.3 mg/dL (8.6-10.8); Carbon Dioxide 17 mEq/L (19-29); Chloride 104 mEq/L (98-109); Glucose 492 mg/dL (70-99); Osmolality,Calculated 290 (280-300); Potassium 4.1 mEq/L (3.5-4.5); Sodium 129 mEq/L (136-145); eGFR For African Americans > 60 (> 60); eGFR For Non-African Americans 54 (> 60)
[2016-06-06] MEDS: *HR* Heparin 5,000 UNIT/ML VIAL SQ SCH ×2 (06:11→17:27)
[2016-06-06] MEDS ORDERED: Insulin LISPRO 300 UNITS/3 ML VIAL SQ SCH ×2 (07:48→07:49)
[2016-06-06] MEDS: Pyridoxine (B-6) 50 MG TABLET PO SCH (08:28)
[2016-06-06] MEDS: Insulin LISPRO 300 UNITS/3 ML VIAL SQ SCH ×3 (08:28→17:41)
[2016-06-06] MEDS: Nicotine 21 MG PATCH.TD24 TD SCH (08:28)
[2016-06-06] MEDS: Folic Acid 1 MG TABLET PO SCH (08:29)
[2016-06-06] MEDS: amLODIPine 5 MG TABLET PO SCH (08:29)
[2016-06-06] MEDS: Thiamine (B-1) 100 MG TABLET PO SCH (08:29)
[2016-06-06] MEDS: Gabapentin 300 MG CAPSULE PO SCH ×3 (08:29→21:44)
--- NOTE | 2016-06-06 17:31 | Internal Med Progress Note ---
Date of Encounter: 06/06/16 Time of Encounter: 11:00 - Assessment and plan (1) KONG (acute kidney injury) Current Visit: Yes Status: Acute Assessment and plan: Patient has a good intake. Will cont hydrate patient, f/u renal function. His creatinine is at about his baseline now. (2) CKD (chronic kidney disease) stage 3, GFR 30-59 ml/min Current Visit: Yes Status: Acute Assessment and plan: Due to diabetes. Follow-up renal function (3) DKA (diabetic ketoacidoses) Current Visit: Yes Status: Acute Assessment and plan: Resolved after treatment. Continue baseline and sliding scale insulin to control blood sugar. Pt has poorly controlled Glu level. Non compliant. Qualifiers: Diabetes mellitus type: type 2 Diabetes mellitus complication detail: without coma Qualified Code(s): E13.10 - Other specified diabetes mellitus with ketoacidosis without coma (4) Essential hypertension Current Visit: Yes Status: Acute Assessment and plan: BP is stable continue home medication (5) Tobacco abuse disorder Current Visit: Yes Status: Acute Assessment and plan: Smoking cessation education. On nicotine Patch (6) DVT prophylaxis Current Visit: Yes Status: Acute Assessment and plan: Heparin subcutaneously - Time Spent With Patient 25 - 35 minutes - Subjective Interval history: Patient is a 60-year-old male admitted for DKA, his past medical history is significant for type 2 diabetes, CKD, hypertension, and tobacco abuse. Patient was seen and examined. He is awake alert, oriented 3. Denies chest pain, shortness of breath, nausea vomiting, abdominal pain. Vitals are stable. His blood sugar level still high, will continueon sliding scale and increases basals insulin dose. Patient cannot tell how much insulin he injected by himself, he obviously need diabetic education. Swallow evaluation done, diet order placed per evaluation. - Constitutional Vitals: Temp Pulse Resp BP Pulse Ox 98.0 F 100 16 137/90 94 L 06/06/16 15:33 06/06/16 16:07 06/06/16 15:33 06/06/16 15:33 06/06/16 15:33 General appearance: Present: A&O X 3, no acute distress - Head Head exam: Present: atraumatic, normocephalic - Eye Eye exam: Present: PERRL, conjuntiva pink, sclera anicteric Pupils: Present: PERRL - Neck Neck exam general surgery: Present: supple, trachea midline. Absent: lymphadenopathy - Respiratory Respiratory exam: Present: CTAB. Absent: accessory muscle use, rales, rhonchi, wheezes - Cardiovascular Cardiovascular exam: Present: RRR, +S1, +S2. Absent: diastolic murmur, gallop, rubs, systolic murmur - GI/Abdominal GI/Abdominal exam: Present: normal bowel sounds, soft, no peritoneal signs. Absent: distended, tenderness - Extremities Exam Extremities exam: Present: warm, radial pulses palpable and symetrical. Absent : calf tenderness, cyanotic, pedal edema - Neurological Exam Neurological exam: Present: CN II-XII intact, oriented X3, no focal deficits. Absent: pronater drift, facial droop, speech deficit - Skin Skin exam: Present: dry, intact Internal Medicine: Result - Labs CBC & Chem 7: 06/06/16 04:10 06/06/16 04:10 Labs: Short CBC 06/06/16 Range/Units 04:10 WBC 7.3 (4.3-11.1) K/mcL Hgb 11.8 L D (12.9-16.9) g/dL Hct 37.1 L (37.5-50.1) % Plt Count 208 (140-400) K/mcL Neutrophils # 4.6 (1.6-8.9) K/mcL BMP 06/06/16 04:10 Sodium 129 L D Potassium 4.1 Chloride 104 Carbon Dioxide 17 L BUN 13 Creatinine 1.36 H Glucose 492 H Calcium 8.3 L Consult Discharge Plan - Plan [facility]: [facility] [Primary Care Provider] - 06/16/16 12:30 pm
[2016-06-06] MEDS: Insulin DETEMIR 100 UNIT/ML X5UNITS SQ SCH (21:45)
[2016-06-07 05:05] LABS: Basophils % 0.6 %; Eosinophils # 0.6 K/mcL (0.0-0.6); Eosinophils % 8.6 %; Hematocrit 36.9 % (37.5-50.1); Hemoglobin 12.1 g/dL (12.9-16.9); Lymphocytes # 1.6 K/mcL (0.6-4.6); Mean Corpuscular HGB Conc 32.8 g/dL (31.6-35.5); Mean Corpuscular Volume 91.6 fL (83.0-100.0); Mean Platelet Volume 11.8 fL (9.4-12.4); Monocytes # 0.4 K/mcL (0.0-1.3); Monocytes % 6.2 %; Platelet Count 210 K/mcL (140-400); Red Blood Count 4.03 M/mcL (4.19-5.50); Segmented Neutrophils % 59.6 %
[2016-06-07 05:26] LABS: BUN/Creatinine Ratio 10 (6-26); Blood Urea Nitrogen 13 mg/dL (8-26); Calcium 8.8 mg/dL (8.6-10.8); Carbon Dioxide 22 mEq/L (19-29); Chloride 104 mEq/L (98-109); Glucose 382 mg/dL (70-99); Osmolality,Calculated 294 (280-300); Potassium 4.2 mEq/L (3.5-4.5); Sodium 134 mEq/L (136-145); eGFR For African Americans > 60 (> 60); eGFR For Non-African Americans 58 (> 60)
[2016-06-07 05:30] LABS: Estimated Average Glucose > 355 mg/dl; Hemoglobin A1C >= 14.1 %
[2016-06-07] MEDS: *HR* Heparin 5,000 UNIT/ML VIAL SQ SCH (06:17)
[2016-06-07 07:40] VITALS: BP 134/92
[2016-06-07] MEDS: Nicotine 21 MG PATCH.TD24 TD SCH (09:06)
[2016-06-07] MEDS: Folic Acid 1 MG TABLET PO SCH (09:07)
[2016-06-07] MEDS: amLODIPine 5 MG TABLET PO SCH (09:07)
[2016-06-07] MEDS: Pyridoxine (B-6) 50 MG TABLET PO SCH (09:07)
[2016-06-07] MEDS: Insulin LISPRO 300 UNITS/3 ML VIAL SQ SCH ×2 (09:07→12:45)
[2016-06-07] MEDS: Gabapentin 300 MG CAPSULE PO SCH (09:07)
[2016-06-07] MEDS: Thiamine (B-1) 100 MG TABLET PO SCH (09:07)
--- NOTE | 2016-06-07 11:48 | Physician Discharge Referral ---
ExtendedCare Referral Info Transfer To: SNF Provider in Charge after Transfer: PCP Institutional Level of Care: Skilled - Diagnosis (1) KONG (acute kidney injury) Priority: Primary Status: Acute (2) CKD (chronic kidney disease) stage 3, GFR 30-59 ml/min Priority: Secondary Status: Chronic (3) DKA (diabetic ketoacidoses) Priority: Primary Status: Acute (4) Essential hypertension Priority: Secondary Status: Chronic (5) Metabolic acidosis Priority: Primary Status: Acute (6) Tobacco abuse disorder Priority: Secondary Status: Chronic Prognosis: Fair Aware of Diagnosis: Patient Aware of Prognosis: Patient - Transfer Medications Home Medications: Amlodipine [Norvasc] 5 mg PO DAILY 06/02/16 [History] Folic Acid 2 mg PO DAILY 06/02/16 [History] Gabapentin [Neurontin] 300 mg PO TID 06/02/16 [History] Insulin Glargine [Lantus] 45 unit SQ HS 06/02/16 [History] Isoniazid [Inh] 300 mg PO DAILY 06/02/16 [History] Metformin HCl [Glucophage] 1,000 mg PO BIDWM 06/02/16 [History] Pyridoxine (B-6) [Vitamin B-6] 50 mg PO DAILY 06/02/16 [History] Thiamine (B-1) [Vitamin B-1] 100 mg PO DAILY 06/02/16 [History] Allergies/Adverse Reactions: Allergies tape Allergy (Uncoded 06/02/16 15:37) Blister - Respiratory Orders Smoking Cessation: Smoking cessation has been advised. For more information, call the [place] Tobacco Quit Line at 0-176-LQTV-NOW. CERTIFICATION: I certify that the transfer of the above named patient to an Extended Care Facility is necessary for the continuing treatment of the diagnosis listed. The above information is true and accurate reflection of patient's current condition. Confidential - Redisclosure prohibited without a patient's written consent.
[2016-06-07] MEDS ORDERED: Insulin LISPRO 300 UNITS/3 ML VIAL SQ SCH (12:00)
--- NOTE | 2016-06-07 12:41 | Physician Discharge Referral ---
Home Health/Hosp Referral Info Transfer to: Home Health Attending Provider: Madonna Provider in Charge Post Discharge: PCP - Diagnosis (1) KONG (acute kidney injury) Priority: Primary Status: Acute (2) CKD (chronic kidney disease) stage 3, GFR 30-59 ml/min Priority: Secondary Status: Chronic (3) DKA (diabetic ketoacidoses) Priority: Primary Status: Acute (4) Essential hypertension Priority: Secondary Status: Chronic (5) Metabolic acidosis Priority: Primary Status: Acute (6) Tobacco abuse disorder Priority: Secondary Status: Chronic - Respiratory Orders Smoking Cessation: Smoking cessation has been advised. For more information, call the [place] Tobacco Quit Line at 3-746-EFXL-NOW. - Transfer Medications Home Medications: Amlodipine [Norvasc] 5 mg PO DAILY 06/02/16 [History] Folic Acid 2 mg PO DAILY 06/02/16 [History] Gabapentin [Neurontin] 300 mg PO TID 06/02/16 [History] Insulin Glargine [Lantus] 45 unit SQ HS 06/02/16 [History] Isoniazid [Inh] 300 mg PO DAILY 06/02/16 [History] Metformin HCl [Glucophage] 1,000 mg PO BIDWM 06/02/16 [History] Pyridoxine (B-6) [Vitamin B-6] 50 mg PO DAILY 06/02/16 [History] Thiamine (B-1) [Vitamin B-1] 100 mg PO DAILY 06/02/16 [History] Allergies/Adverse Reactions: Allergies tape Allergy (Uncoded 06/02/16 15:37) Blister Certification: Further, I certify that my clinical findings support that this patient is homebound (i.e. absences from home require considerable and taxing effort and are for medical reasons or mandaen services or infrequently or short duration when for other reasons) because: Homebound Reason: Patient requires assistance of a person or device to safely leave home Attestation: My signature below is to certify that this patient is under my care and that I, or nurse practitioner, or a physician's corporate law assistant working with me, has a face-to -face encounter with this patient.
--- NOTE | 2016-06-07 14:04 | Discharge Summary ---
Date of Encounter: 06/07/16 Time of Encounter: 14:04 - Discharge Diagnosis (1) KONG (acute kidney injury) Priority: Primary Status: Resolved (2) CKD (chronic kidney disease) stage 3, GFR 30-59 ml/min Priority: Secondary Status: Chronic (3) DKA (diabetic ketoacidoses) Priority: Primary Status: Resolved Qualifiers: Diabetes mellitus type: type 2 Diabetes mellitus complication detail: without coma Qualified Code(s): E13.10 - Other specified diabetes mellitus with ketoacidosis without coma (4) Essential hypertension Priority: Secondary Status: Chronic (5) Metabolic acidosis Priority: Primary Status: Resolved (6) Tobacco abuse disorder Priority: Secondary Status: Chronic - Discharge Medications Prescriptions: Nicotine Patch [Nicoderm] 21 mg TD DAILY #30 patch.td24 Home Medications: Amlodipine [Norvasc] 5 mg PO DAILY 06/02/16 [History] Folic Acid 2 mg PO DAILY 06/02/16 [History] Gabapentin [Neurontin] 300 mg PO TID 06/02/16 [History] Insulin Glargine [Lantus] 45 unit SQ HS 06/02/16 [History] Isoniazid [Inh] 300 mg PO DAILY 06/02/16 [History] Metformin HCl [Glucophage] 1,000 mg PO BIDWM 06/02/16 [History] Pyridoxine (B-6) [Vitamin B-6] 50 mg PO DAILY 06/02/16 [History] Thiamine (B-1) [Vitamin B-1] 100 mg PO DAILY 06/02/16 [History] Nicotine Patch [Nicoderm] 21 mg TD DAILY #30 patch.td24 06/07/16 [Rx] Allergies/Adverse Reactions: Allergies tape Allergy (Uncoded 06/02/16 15:37) Blister Date of admission: 06/02/16 19:42 Primary care physician: PCP [place] Consults: 06/02/16 20:51 Consult to School Laboratory Technician [CONS] Routine Reason for SW Consult: Patient from [facility] 06/02/16 21:06 Consult for Pharmacy Education [CONS] Routine Reason for Consult: noncompliant DM Call Completed: No 06/04/16 14:16 Consult to Press Setup Operator [CONS] Routine Comment: Consult to Occupational Therapy [CONS] Routine Comment: Evaluate, develop and implement POC Consult to Physical Therapy [CONS] Routine Comment: Evaluate, develop and implement POC Discharging clinician: Mikal Peacock Anticipated date of discharge: 06/07/16 - Patient Status Disposition: Home Health Service Condition: Fair Functional capacity at discharge: independent ambulation Overall status at discharge: patient is back to baseline - Discharge Instructions Instructions: Nicotine (Absorbed through the skin), Diabetic Ketoacidosis (DC) Follow Up [facility]: [facility] [Primary Care Provider] - 06/16/16 12:30 pm - Diet and Activity Activity: resume usual activities as tolerated Diet: diabetic diet, low fat, low cholesterol, low salt diet Interval History: See below Hospital course: Mr. Fowler is a 60 year old male with PMH o Uncontrolled DM complicated by CKD, HTN, Tobacco abuse Patient was admitted for management of DKA, KONG On CKD. with no source of infection AG has since closed and patient has been bridged to SQ insulin His renal function has returned to baseline Patient has since had difficult to control FS , mostly due to poor insight and non-compliance with diets Patient eats sugary snacks and cookies from the vending machine throughout hospital stay He was seen by life skills educator but did not co-operate and stated he did not want any education He is also a very poor historian and forgetful, including forgetting to take his medications He is seen at bedside this morning He has no new complaints He is seen tolerating lunch and shortly afterwards on the hallway coming from the vending machine with cookies He is aware of his admitting diagnoses and potential lethal side effects of uncontrolled blood sugars, including DKA, HHS, and worsening of kidney function He is stable to be discharged with home care , educated again on hypoglycemia symptoms and compliance with meds and diet 3 minutes spent on tobacco cessation counselling, Will discharge with NRT, educated not to smoke while on Nicotine patch Follow up with PCP Time spent discussing smoking cessation with patient: 3 to 10 minutes - Time Spent with Patient Total time spent providing and/or coordinating discharge services: Less than 30 minutes - Constitutional Vitals: Temp Pulse Resp BP Pulse Ox 97.4 F L 81 15 134/92 94 L 06/07/16 07:39 06/07/16 07:39 06/07/16 07:39 06/07/16 07:39 06/07/16 07:39 General appearance: Present: A&O X 3, pleasant, no acute distress - Head Head exam: Present: atraumatic, normocephalic - Eye Eye exam: Present: PERRL, conjuntiva pink, sclera anicteric Pupils: Present: PERRL - Neck Neck exam general surgery: Present: supple, trachea midline. Absent: lymphadenopathy - Respiratory Respiratory exam: Present: CTAB. Absent: accessory muscle use, rales, rhonchi, wheezes - Cardiovascular Cardiovascular exam: Present: RRR, +S1, +S2. Absent: diastolic murmur, gallop, rubs, systolic murmur - GI/Abdominal GI/Abdominal exam: Present: normal bowel sounds, soft, no peritoneal signs. Absent: distended, tenderness - Extremities Exam Extremities exam: Present: warm, radial pulses palpable and symetrical. Absent : calf tenderness, cyanotic, pedal edema - Neurological Exam Neurological exam: Present: CN II-XII intact, oriented X3, no focal deficits. Absent: pronater drift, facial droop, speech deficit - Skin Skin exam: Present: dry
[2016-06-07] MEDS ORDERED: Insulin DETEMIR 100 UNIT/ML X5UNITS SQ SCH (21:00)
== END 2016-06-07 14:28 | disposition home health service (06) | DRG 638 ==
LOC: EMEROO 15:23 → 2NNU 19:42 → SUATTDRO 19:42 → 2NNU 20:08 → 3BNU 06-04 23:46
PROVIDERS: ADMIT Internal Medicine; ATTEND Internal Medicine

== ENCOUNTER 2016-06-18 10:38 | Inpatient (IN) ==
--- NOTE | 2016-06-18 10:42 | Emergency Department Note ---
Disposition Clinical Impression: Generalized weakness, Uncontrolled diabetes mellitus, Ketonemia Disposition: Admitted As Inpatient Condition: Good General Adult HPI - General Chief complaint: ED Neuro Symptoms/Deficit Stated complaint: unable to ambulate Time Seen by Provider: 06/18/16 10:40 - Related Data Home Medications Medication Instructions Recorded Confirmed Amlodipine [Norvasc] 5 mg PO DAILY 06/02/16 06/18/16 Folic Acid 2 mg PO DAILY 06/02/16 06/18/16 Gabapentin [Neurontin] 300 mg PO TID 06/02/16 06/18/16 Insulin Glargine [Lantus] 15 unit SQ BID 06/02/16 06/18/16 Isoniazid [Inh] 300 mg PO DAILY 06/02/16 06/18/16 Metformin HCl [Glucophage] 1,000 mg PO BIDWM 06/02/16 06/18/16 Pyridoxine (B-6) [Vitamin B-6] 50 mg PO DAILY 06/02/16 06/18/16 Thiamine (B-1) [Vitamin B-1] 100 mg PO DAILY 06/02/16 06/18/16 Aspirin 81 mg PO DAILY 06/18/16 06/18/16 Mv-Mn/FA/Vit K/Lycop/Lut/Coq10 1 tab PO DAILY 06/18/16 06/18/16 [Daily Multivitamin Capsule] Allergies Allergy/AdvReac Type Severity Reaction Status Date / Time adhesive tape Allergy Rash Verified 06/18/16 12:57 Past Medical History - Past Medical History Medical history: Reports: CVA, diabetes Surgical history: Reports: no surgical history Psychiatric history: Reports: no psych history - Social History Smoking Status: Current every day smoker Smokeless Tobacco Status: No Alcohol use: Reports: unknown Drug use: Reports: unknown Course Vital Signs Temperature 98.7 F 06/18/16 10:39 Pulse Rate 96 06/18/16 10:39 Respiratory Rate 16 06/18/16 10:39 Blood Pressure 137/109 06/18/16 10:39 O2 Sat by Pulse Oximetry 97 06/18/16 10:39 Temperature 97.7 F 06/18/16 15:15 Pulse Rate 78 06/18/16 15:15 Respiratory Rate 14 06/18/16 15:15 Blood Pressure 147/91 06/18/16 15:15 O2 Sat by Pulse Oximetry 98 06/18/16 15:15 Oxygen Delivery Oxygen Delivery Room Air Medical Decision Making - Lab Data Result diagrams: 06/18/16 11:21 06/18/16 11:21 Lab Results 06/18/16 06/18/16 06/18/16 Range/Units 11:21 11:21 11:21 WBC 7.6 (4.3-11.1) K/mcL RBC 4.31 (4.19-5.50) M/mcL Hgb 13.0 (12.9-16.9) g/dL Hct 39.3 (37.5-50.1) % MCV 91.2 (83.0-100.0) fL MCH 30.2 (28.0-33.3) pg MCHC 33.1 (31.6-35.5) g/dL RDW 13.1 (11.5-14.5) % Plt Count 257 (140-400) K/mcL MPV 9.9 (9.4-12.4) fL Immature Gran % 1.1 (0-4) % Seg Neutrophils % 73.6 % Lymphocytes % 14.7 % Monocytes % 4.9 % Eosinophils % 4.9 % Basophils % 0.8 % Neutrophils # 5.6 (1.6-8.9) K/mcL Lymphocytes # 1.1 (0.6-4.6) K/mcL Monocytes # 0.4 (0.0-1.3) K/mcL Eosinophils # 0.4 (0.0-0.6) K/mcL Basophils # 0.1 (0.0-0.2) K/mcL VBG pH 7.26 L (7.32-7.42) pH Units VBG pCO2 41 (41-51) mmHg VBG pO2 26 (25-40) mmHg VBG HCO3 18.4 L (21-27) mEq/L Sodium 134 L (136-145) mEq/L Potassium 4.6 H (3.5-4.5) mEq/L Chloride 105 (98-109) mEq/L Carbon Dioxide 16 L (19-29) mEq/L BUN 11 (8-26) mg/dL Creatinine 1.40 H (0.72-1.25) mg/dL Est GFR ( Amer) > 60 (> 60) Est GFR (Non-Af Amer) 52 L (> 60) BUN/Creatinine Ratio 8 (6-26) Glucose 371 H (70-99) mg/dL Calculated Osmolality 293 (280-300) Calcium 9.2 (8.6-10.8) mg/dL Phosphorus 3.3 (2.3-4.7) mg/dL Magnesium 1.6 (1.6-2.6) mg/dL Beta-Hydroxybutyric Acd > 2.00 H (0.02-0.27) mmol/L Urine Color (Yellow) Urine Clarity (Clear) Urine pH (5.0-8.0) pH Units Ur Specific [place] (1.010-1.025) Urine Protein (Neg-Trace) mg/dL Urine Glucose (UA) (Normal) mg/dL Urine Ketones (Negative) mg/dL Urine Blood (Negative) Urine Nitrite (Negative) Urine Bilirubin (Negative) Urine Urobilinogen (Normal) mg/dL Ur Leukocyte Esterase (Negative) Urine Microscopic RBC (0-3) per hpf Urine Microscopic WBC (0-3) per hpf Ur Squamous Epith Cells (None-Few) per lpf Urine Bacteria (None-Few) per hpf Hyaline Casts (None-Few) per lpf 06/18/16 Range/Units 12:09 WBC (4.3-11.1) K/mcL RBC (4.19-5.50) M/mcL Hgb (12.9-16.9) g/dL Hct (37.5-50.1) % MCV (83.0-100.0) fL MCH (28.0-33.3) pg MCHC (31.6-35.5) g/dL RDW (11.5-14.5) % Plt Count (140-400) K/mcL MPV (9.4-12.4) fL Immature Gran % (0-4) % Seg Neutrophils % % Lymphocytes % % Monocytes % % Eosinophils % % Basophils % % Neutrophils # (1.6-8.9) K/mcL Lymphocytes # (0.6-4.6) K/mcL Monocytes # (0.0-1.3) K/mcL Eosinophils # (0.0-0.6) K/mcL Basophils # (0.0-0.2) K/mcL VBG pH (7.32-7.42) pH Units VBG pCO2 (41-51) mmHg VBG pO2 (25-40) mmHg VBG HCO3 (21-27) mEq/L Sodium (136-145) mEq/L Potassium (3.5-4.5) mEq/L Chloride (98-109) mEq/L Carbon Dioxide (19-29) mEq/L BUN (8-26) mg/dL Creatinine (0.72-1.25) mg/dL Est GFR ( Amer) (> 60) Est GFR (Non-Af Amer) (> 60) BUN/Creatinine Ratio (6-26) Glucose (70-99) mg/dL Calculated Osmolality (280-300) Calcium (8.6-10.8) mg/dL Phosphorus (2.3-4.7) mg/dL Magnesium (1.6-2.6) mg/dL Beta-Hydroxybutyric Acd (0.02-0.27) mmol/L Urine Color Yellow (Yellow) Urine Clarity Clear (Clear) Urine pH 6.0 (5.0-8.0) pH Units Ur Specific [place] 1.030 H (1.010-1.025) Urine Protein Trace (Neg-Trace) mg/dL Urine Glucose (UA) >=1000 H (Normal) mg/dL Urine Ketones 80 H (Negative) mg/dL Urine Blood Negative (Negative) Urine Nitrite Negative (Negative) Urine Bilirubin Negative (Negative) Urine Urobilinogen Normal (Normal) mg/dL Ur Leukocyte Esterase Negative (Negative) Urine Microscopic RBC 0-3 (0-3) per hpf Urine Microscopic WBC 0-3 (0-3) per hpf Ur Squamous Epith Cells Moderate H (None-Few) per lpf Urine Bacteria None Seen (None-Few) per hpf Hyaline Casts None Seen (None-Few) per lpf Attestation Statement - Attestation Attestation: I examined this patient and my medical decision-making was reviewed with the NURSING SERVICE DIRECTOR/PA/Advanced Practice Nurse/Resident Physician. I agree with the documented findings, disposition and treatment plan as described except to the extent set forth below. [id number] time provided To ED from home via EMS. He notes bilateral leg weakness with the inability to walk since discharge from the hospital yesterday. He was unable to Ambo to the bathroom and defecated on himself. The patient appears disheveled on exam. He is teary and anxious. 12:25: Labs reviewed by me indicating low serum bicarbonate and an elevated beta hydroxybutyric acid. His anion gap is calculated to be within an acceptable range. The patient is given IV fluids and is tolerating oral intake 12:42: Patient states his legs are to ambulate. He feels dizzy when changing positions. We will request admission to the medicine service
[2016-06-18] MEDS ORDERED: *HR* Dextrose 50 % in Water (Syg) 50 ML SYRINGE IVP PRN ×2 (10:46→13:51)
[2016-06-18] MEDS ORDERED: Insulin Human Regular 100 UNIT in 0.9 % Sodium Chloride 100 ML IVC SCH (11:00)
[2016-06-18] MEDS ORDERED: 0.9 % Sodium Chloride 1,000 ML IVC ONE (11:02)
--- NOTE | 2016-06-18 11:18 | Emergency Department Note ---
Disposition Clinical Impression: Generalized weakness, Ketonemia Uncontrolled diabetes mellitus Qualifiers: Diabetes mellitus type: type 2 Diabetes mellitus complication status: with unspecified complications Diabetes mellitus supervisor estimator and drafter insulin use: with longterm use Qualified Code(s): E11.8 - Type 2 diabetes mellitus with unspecified complications; E11.65 - Type 2 diabetes mellitus with hyperglycemia; Z79.4 - intermediate (current) use of insulin Disposition: Admitted As Inpatient Condition: Good Time of Disposition: 13:37 General Adult HPI - General Chief complaint: ED Neuro Symptoms/Deficit Stated complaint: unable to ambulate Time Seen by Provider: 06/18/16 10:40 Source: patient, EMS Mode of arrival: EMS Limitations: no limitations Nursing Notes Reviewed: Yes Vital Signs Reviewed: Yes - History of Present Illness HPI Narrative: 60-year-old male history of insulin-dependent diabetes mellitus presents to ED via EMS for weakness and uncontrolled blood sugar. Patient reports lower extremity weakness since yesterday, unable to ambulate since discharge yesterday. He was so weak he was unable to make it to the bathroom and self defecated. States his incontinence was purely functional. Denies any pain. Denies any back pain, urinary retention, or saddle anesthesia. Denies any difficulty in breathing, recent illness, nausea, vomiting. Blood sugar by EMS 352. NIH score is 0. Moves all 4 extremities without difficulty. No slurred speech or facial droop. Lives by himself. Was discharged from ED yesterday. Pain Scale: 0 - Related Data Home Medications Medication Instructions Recorded Confirmed Amlodipine [Norvasc] 5 mg PO DAILY 06/02/16 06/02/16 Folic Acid 2 mg PO DAILY 06/02/16 06/02/16 Gabapentin [Neurontin] 300 mg PO TID 06/02/16 06/02/16 Insulin Glargine [Lantus] 45 unit SQ HS 06/02/16 06/02/16 Isoniazid [Inh] 300 mg PO DAILY 06/02/16 06/02/16 Metformin HCl [Glucophage] 1,000 mg PO BIDWM 06/02/16 06/02/16 Pyridoxine (B-6) [Vitamin B-6] 50 mg PO DAILY 06/02/16 06/02/16 Thiamine (B-1) [Vitamin B-1] 100 mg PO DAILY 06/02/16 06/02/16 Aspirin 81 mg PO DAILY 06/18/16 06/18/16 Mv-Mn/FA/Vit K/Lycop/Lut/Coq10 1 tab PO DAILY 06/18/16 06/18/16 [Daily Multivitamin Capsule] Allergies Allergy/AdvReac Type Severity Reaction Status Date / Time adhesive tape Allergy Rash Verified 06/18/16 12:57 All systems ED: reviewed and negative except as stated. Constitutional: Denies: fever, chills Cardiovascular: Denies: chest pain Respiratory: Denies: cough, dyspnea Gastrointestinal: Denies: abdominal pain, nausea, vomiting Genitourinary: Denies: urgency, dysuria, frequency Musculoskeletal: Denies: back pain Integumentary: Denies: rash, abrasion Past Medical History - Past Medical History Attestation: Yes The following information was validated with the patient. Source: patient Medical history: Reports: CVA, diabetes Surgical history: Reports: no surgical history Psychiatric history: Reports: no psych history - Social History Smoking Status: Current every day smoker Smokeless Tobacco Status: No Alcohol use: Reports: unknown Drug use: Reports: unknown Physical Exam - General Limitations: no limitations General appearance: anxious, obese - Head Head exam: atraumatic, normocephalic, normal inspection - Eye Eye exam: Present: normal appearance, PERRL, EOMI - ENT ENT exam: normal exam, normal oropharynx, mucous membranes moist - Neck Neck exam: Present: normal inspection, full ROM, trachea midline - Chest Chest inspection: Present: normal inspection, symmetric chest wall rise. Absent : tenderness, rash - Respiratory Respiratory exam: Present: normal lung sounds bilaterally. Absent: respiratory distress, wheezes - Cardiovascular Cardiovascular exam: Present: regular rate, normal rhythm, normal heart sounds - Abdominal Exam Abdominal exam: Present: soft, Non-Tender, normal bowel sounds. Absent: tenderness, distention, guarding, rebound, rigidity - Extremities Exam Extremities exam: Present: normal inspection, full ROM, normal capillary refill. Absent: tenderness, pedal edema, calf tenderness - Neurological Exam Neurological exam: Present: alert, oriented X3, CN II-XII intact - Expanded Neurological Exam Patient oriented to: Present: person, place, time Speech: Present: fluid speech Cranial nerves: EOM function (II, III, IV, ): Normal, facial sensation (V): Normal, facial palsy (VII): Normal, gag reflex (IX): Normal, spinal accessory function (XI): Normal, tongue deviation (XII): Normal Motor strength - LUE: 5/5 Motor strength - RUE: 5/5 Motor strength - LLE: 5/5 Motor strength - RLE: 5/5 Upper motor neuron exam: margarita neglect: Absent bilaterally, pronator drift: Absent bilaterally Sensory exam upper extremity: light touch: Normal, pin prick: Normal Sensory exam lower extremity: light touch: Normal - Psychiatric Psychiatric exam: Present: anxious. Absent: homicidal ideation, suicidal ideation - Skin Skin exam: Present: warm, dry, intact, normal color Course Course Narrative: 60-year-old male history of insulin dependent diabetes mellitus presents to the ED for lower extremity weakness unable to ambulate since yesterday. Denies any recent fall, facial drooping, slurred speech. Comes today because his legs are so weak he was unable to make it to the bathroom. He had fecal incontinence. Denies any back pain, urinary retention, saddle anesthesia. Reports this was purely functional. Patient does live at home by himself, this appears to be solely a social issue. Will check basic labs, urine, and VBG. - Reevaluation(s) Reevaluation #1: Patient is too weak to stand under his own strength. Blood glucose 371. Receiving normal saline. Anion gap is within acceptable limit. Serum ketone elevated >2.00. Cr is 1.[address] head without signs of hemorrhage or intracranial abnormality. Will admit for generalized weakness, uncontrolled diabetes, ketonemia, and likely placement. Time: 13:00 - Consultations Consultation #1: Spoke to belen Shah to admit for generalized weakness and uncontrolled diabetes Time: 13:24 Vital Signs Temperature 98.7 F 06/18/16 10:39 Pulse Rate 96 06/18/16 10:39 Respiratory Rate 16 06/18/16 10:39 Blood Pressure 137/109 06/18/16 10:39 O2 Sat by Pulse Oximetry 97 06/18/16 10:39 Temperature 98.7 F 06/18/16 10:39 Pulse Rate 79 06/18/16 11:40 Respiratory Rate 16 06/18/16 13:09 Blood Pressure 146/95 06/18/16 13:09 O2 Sat by Pulse Oximetry 98 06/18/16 11:40 Oxygen Delivery Oxygen Delivery Room Air Medical Decision Making - Medical Records Medical records reviewed: Yes I reviewed the patient's medical records. - Lab Data Lab results reviewed: Yes I reviewed the patient's lab results. Result diagrams: 06/18/16 11:21 06/18/16 11:21 Lab Results 06/18/16 06/18/16 06/18/16 Range/Units 11:21 11:21 11:21 WBC 7.6 (4.3-11.1) K/mcL RBC 4.31 (4.19-5.50) M/mcL Hgb 13.0 (12.9-16.9) g/dL Hct 39.3 (37.5-50.1) % MCV 91.2 (83.0-100.0) fL MCH 30.2 (28.0-33.3) pg MCHC 33.1 (31.6-35.5) g/dL RDW 13.1 (11.5-14.5) % Plt Count 257 (140-400) K/mcL MPV 9.9 (9.4-12.4) fL Immature Gran % 1.1 (0-4) % Seg Neutrophils % 73.6 % Lymphocytes % 14.7 % Monocytes % 4.9 % Eosinophils % 4.9 % Basophils % 0.8 % Neutrophils # 5.6 (1.6-8.9) K/mcL Lymphocytes # 1.1 (0.6-4.6) K/mcL Monocytes # 0.4 (0.0-1.3) K/mcL Eosinophils # 0.4 (0.0-0.6) K/mcL Basophils # 0.1 (0.0-0.2) K/mcL VBG pH 7.26 L (7.32-7.42) pH Units VBG pCO2 41 (41-51) mmHg VBG pO2 26 (25-40) mmHg VBG HCO3 18.4 L (21-27) mEq/L Sodium 134 L (136-145) mEq/L Potassium 4.6 H (3.5-4.5) mEq/L Chloride 105 (98-109) mEq/L Carbon Dioxide 16 L (19-29) mEq/L BUN 11 (8-26) mg/dL Creatinine 1.40 H (0.72-1.25) mg/dL Est GFR ( Amer) > 60 (> 60) Est GFR (Non-Af Amer) 52 L (> 60) BUN/Creatinine Ratio 8 (6-26) Glucose 371 H (70-99) mg/dL Calculated Osmolality 293 (280-300) Calcium 9.2 (8.6-10.8) mg/dL Phosphorus 3.3 (2.3-4.7) mg/dL Magnesium 1.6 (1.6-2.6) mg/dL Beta-Hydroxybutyric Acd > 2.00 H (0.02-0.27) mmol/L Urine Color (Yellow) Urine Clarity (Clear) Urine pH (5.0-8.0) pH Units Ur Specific [place] (1.010-1.025) Urine Protein (Neg-Trace) mg/dL Urine Glucose (UA) (Normal) mg/dL Urine Ketones (Negative) mg/dL Urine Blood (Negative) Urine Nitrite (Negative) Urine Bilirubin (Negative) Urine Urobilinogen (Normal) mg/dL Ur Leukocyte Esterase (Negative) Urine Microscopic RBC (0-3) per hpf Urine Microscopic WBC (0-3) per hpf Ur Squamous Epith Cells (None-Few) per lpf Urine Bacteria (None-Few) per hpf Hyaline Casts (None-Few) per lpf 06/18/16 Range/Units 12:09 WBC (4.3-11.1) K/mcL RBC (4.19-5.50) M/mcL Hgb (12.9-16.9) g/dL Hct (37.5-50.1) % MCV (83.0-100.0) fL MCH (28.0-33.3) pg MCHC (31.6-35.5) g/dL RDW (11.5-14.5) % Plt Count (140-400) K/mcL MPV (9.4-12.4) fL Immature Gran % (0-4) % Seg Neutrophils % % Lymphocytes % % Monocytes % % Eosinophils % % Basophils % % Neutrophils # (1.6-8.9) K/mcL Lymphocytes # (0.6-4.6) K/mcL Monocytes # (0.0-1.3) K/mcL Eosinophils # (0.0-0.6) K/mcL Basophils # (0.0-0.2) K/mcL VBG pH (7.32-7.42) pH Units VBG pCO2 (41-51) mmHg VBG pO2 (25-40) mmHg VBG HCO3 (21-27) mEq/L Sodium (136-145) mEq/L Potassium (3.5-4.5) mEq/L Chloride (98-109) mEq/L Carbon Dioxide (19-29) mEq/L BUN (8-26) mg/dL Creatinine (0.72-1.25) mg/dL Est GFR ( Amer) (> 60) Est GFR (Non-Af Amer) (> 60) BUN/Creatinine Ratio (6-26) Glucose (70-99) mg/dL Calculated Osmolality (280-300) Calcium (8.6-10.8) mg/dL Phosphorus (2.3-4.7) mg/dL Magnesium (1.6-2.6) mg/dL Beta-Hydroxybutyric Acd (0.02-0.27) mmol/L Urine Color Yellow (Yellow) Urine Clarity Clear (Clear) Urine pH 6.0 (5.0-8.0) pH Units Ur Specific [place] 1.030 H (1.010-1.025) Urine Protein Trace (Neg-Trace) mg/dL Urine Glucose (UA) >=1000 H (Normal) mg/dL Urine Ketones 80 H (Negative) mg/dL Urine Blood Negative (Negative) Urine Nitrite Negative (Negative) Urine Bilirubin Negative (Negative) Urine Urobilinogen Normal (Normal) mg/dL Ur Leukocyte Esterase Negative (Negative) Urine Microscopic RBC 0-3 (0-3) per hpf Urine Microscopic WBC 0-3 (0-3) per hpf Ur Squamous Epith Cells Moderate H (None-Few) per lpf Urine Bacteria None Seen (None-Few) per hpf Hyaline Casts None Seen (None-Few) per lpf - Radiology Data Radiology results reviewed: Yes I reviewed the patient's radiology results. Head CT 06/18/16 10:52 IMPRESSION: No acute intracranial abnormality. D/ / 06/18/2016 13:24:47 Jose Browning MD / Fauzia Bolton Interpreting Provider: Jose Browning MD - EKG Data EKG #1 EKG attestation: Yes I reviewed and interpreted this EKG. EKG results narrative: EKG performed 1057 normal sinus rhythm 96 bpm, normal axis, no ST elevations or depressions, nonspecific T-wave changes in inferior leads, good R-R wave progression. Intervals are within normal limits NC interval 157 QRS 90 QT QTC 353 407. Compared old EKG performed 06/02/2016 with consistent findings of sinus tachycardia 10 6 bpm with similar T-wave morphology. No acute ischemic changes.
[2016-06-18 11:29] LABS: Basophils # 0.1 K/mcL (0.0-0.2); Basophils % 0.8 %; Eosinophils # 0.4 K/mcL (0.0-0.6); Eosinophils % 4.9 %; Hematocrit 39.3 % (37.5-50.1); Immature Granulocytes % 1.1 % (0-4); Lymphocytes # 1.1 K/mcL (0.6-4.6); Lymphocytes % 14.7 %; Mean Corpuscular HGB Conc 33.1 g/dL (31.6-35.5); Mean Corpuscular Hemoglobin 30.2 pg (28.0-33.3); Mean Corpuscular Volume 91.2 fL (83.0-100.0); Mean Platelet Volume 9.9 fL (9.4-12.4); Monocytes # 0.4 K/mcL (0.0-1.3); Monocytes % 4.9 %; Neutrophils # 5.6 K/mcL (1.6-8.9); Platelet Count 257 K/mcL (140-400); Red Blood Count 4.31 M/mcL (4.19-5.50); Red Cell Distribution Width 13.1 % (11.5-14.5); Segmented Neutrophils % 73.6 %
[2016-06-18 11:31] LABS: VBG HCO3 18.4 mEq/L (21-27); VBG PH 7.26 pH Units (7.32-7.42)
[2016-06-18 11:33] LABS: Beta-Hydroxybutyric Acid > 2.00 mmol/L (0.02-0.27)
[2016-06-18 11:42] LABS: BUN/Creatinine Ratio 8 (6-26); Blood Urea Nitrogen 11 mg/dL (8-26); Calcium 9.2 mg/dL (8.6-10.8); Carbon Dioxide 16 mEq/L (19-29); Chloride 105 mEq/L (98-109); Glucose 371 mg/dL (70-99); Magnesium 1.6 mg/dL (1.6-2.6); Osmolality,Calculated 293 (280-300); Phosphorous 3.3 mg/dL (2.3-4.7); Potassium 4.6 mEq/L (3.5-4.5); Sodium 134 mEq/L (136-145); eGFR For African Americans > 60 (> 60); eGFR For Non-African Americans 52 (> 60)
[2016-06-18 12:16] LABS: Bilirubin,Urine Negative (Negative); Blood,Urine Negative (Negative); Clarity,Urine Clear (Clear); Color,Urine Yellow (Yellow); Glucose,Urine (UA) >=1000 mg/dL (Normal); Ketones,Urine 80 mg/dL (Negative); Leukocyte Esterase,Urine Negative (Negative); Nitrite,Urine Negative (Negative); Protein,Urine Trace mg/dL (Neg-Trace); Urobilinogen,Urine Normal (Normal)
[2016-06-18 12:19] LABS: Bacteria,Urine None Seen per hpf (None-Few); Hyaline Casts,Urine None Seen per lpf (None-Few); RBC,Urine 0-3 per hpf (0-3); Squamous Epithelial Cell,Urine Moderate per lpf (None-Few); WBC,Urine 0-3 per hpf (0-3)
[2016-06-18] MEDS ORDERED: 0.9 % Sodium Chloride 1,000 ML ONE (13:48)
[2016-06-18] MEDS ORDERED: D5% in Water 1,000 ML IV PRN (13:51)
[2016-06-18] MEDS ORDERED: Dextrose Gel 15 GM PO PRN ×2 (13:51)
[2016-06-18] MEDS: 0.9 % Sodium Chloride 1,000 ML IVC SCH ×2 (13:55→22:12)
[2016-06-18] MEDS ORDERED: Naloxone 0.4 MG/ML INJ IVP PRN (13:55)
[2016-06-18] MEDS ORDERED: Acetaminophen 325 MG TABLET PO PRN (13:55)
[2016-06-18] MEDS ORDERED: Ondansetron 4 MG/2 ML VIAL IVP PRN (13:55)
[2016-06-18] MEDS ORDERED: Sodium Bicarbonate 75 MEQ in 0.45 % Sodium Chloride 1,000 ML IVC SCH (14:00)
[2016-06-18] MEDS ORDERED: NON-FORMULARY MEDICATION 1 EACH EACH (Insulin Glargine [Lantus] 30 UNIT) SQ SCH (14:00)
--- NOTE | 2016-06-18 14:06 | Internal Med History&Physical ---
Date of Encounter: 06/18/16 Time of Encounter: 13:35 Internal Medicine - H&P: HPI Chief complaint: "I just cannot move" Plans for Post Hospital Care: Home History of present illness: Mr. Fowler is a 60 year old male with medical history significant for DM2, recently discharged after hospitalization for DKA late last month, he presents today because he felt lethargic and couldn't move lower extremities. He reports no other symptoms. Significantly, he denies N/V/D, constipation, falls, no new- onset respiratory or urinary symptoms. no new-onset numbness, changes in speech or alertness. No confusion. No constitutional symptoms. No fecal or urinary incontinence. No back pain, urinary retention, saddle anesthesia. He reports compliance with medications. He lives alone. He was evaluated yesterday in the ED and was discharged home after treatment of hyperglycemia. He is FULL CODE as per discussion and nominates his sister, Tesha Osorio as his NOK/POA, he does not recall her phone number. ROS: A 10 point ROS was performed. see HPI. Positives and relevant negatives are detailed, system-symptom not mention assumed negative unless otherwise stated. Family history: He is unable to provide. Vital Signs Temperature 98.7 F 06/18/16 10:39 Pulse Rate 96 06/18/16 10:39 Respiratory Rate 16 06/18/16 10:39 Blood Pressure 137/109 06/18/16 10:39 O2 Sat by Pulse Oximetry 97 06/18/16 10:39 Temperature 98.7 F 06/18/16 10:39 Pulse Rate 79 06/18/16 11:40 Respiratory Rate 16 06/18/16 11:40 Blood Pressure 171/132 06/18/16 11:40 O2 Sat by Pulse Oximetry 98 06/18/16 11:40 Not in distress, not ill or toxic looking. lethargic. Not pale, anicteric, afebrile, acyanotic. Dry mucosa. HEENT: No JVD, no cervical lymphadenopathy, Chest : CTAB Heart: RRR, HS1/2, no m/r/g. Abdomen: soft, non-tender, no guarding, no rebound, no masses, BS+ : No flank tenderness, no CVA tenderness, no suprapubic tenderness. DEVELOPMENT TEAM LEAD: AAO x 3, weakness in both lower extremity as part of generalized weakness, probably somewhat out -of-proportion Skin: Dr skin, no active skin lesion. no rash Extremities: No pedal edema, normal pedal pulses, no calf tenderness. Lab Results 06/18/16 06/18/16 06/18/16 Range/Units 11:21 11:21 11:21 WBC 7.6 (4.3-11.1) K/mcL RBC 4.31 (4.19-5.50) M/mcL Hgb 13.0 (12.9-16.9) g/dL Hct 39.3 (37.5-50.1) % MCV 91.2 (83.0-100.0) fL MCH 30.2 (28.0-33.3) pg MCHC 33.1 (31.6-35.5) g/dL RDW 13.1 (11.5-14.5) % Plt Count 257 (140-400) K/mcL MPV 9.9 (9.4-12.4) fL Immature Gran % 1.1 (0-4) % Seg Neutrophils % 73.6 % Lymphocytes % 14.7 % Monocytes % 4.9 % Eosinophils % 4.9 % Basophils % 0.8 % Neutrophils # 5.6 (1.6-8.9) K/mcL Lymphocytes # 1.1 (0.6-4.6) K/mcL Monocytes # 0.4 (0.0-1.3) K/mcL Eosinophils # 0.4 (0.0-0.6) K/mcL Basophils # 0.1 (0.0-0.2) K/mcL VBG pH 7.26 L (7.32-7.42) pH Units VBG pCO2 41 (41-51) mmHg VBG pO2 26 (25-40) mmHg VBG HCO3 18.4 L (21-27) mEq/L Sodium 134 L (136-145) mEq/L Potassium 4.6 H (3.5-4.5) mEq/L Chloride 105 (98-109) mEq/L Carbon Dioxide 16 L (19-29) mEq/L BUN 11 (8-26) mg/dL Creatinine 1.40 H (0.72-1.25) mg/dL Est GFR ( Amer) > 60 (> 60) Est GFR (Non-Af Amer) 52 L (> 60) BUN/Creatinine Ratio 8 (6-26) Glucose 371 H (70-99) mg/dL Calculated Osmolality 293 (280-300) Calcium 9.2 (8.6-10.8) mg/dL Phosphorus 3.3 (2.3-4.7) mg/dL Magnesium 1.6 (1.6-2.6) mg/dL Beta-Hydroxybutyric Acd > 2.00 H (0.02-0.27) mmol/L Urine Color (Yellow) Urine Clarity (Clear) Urine pH (5.0-8.0) pH Units Ur Specific Will[place] (1.010-1.025) Urine Protein (Neg-Trace) mg/dL Urine Glucose (UA) (Normal) mg/dL Urine Ketones (Negative) mg/dL Urine Blood (Negative) Urine Nitrite (Negative) Urine Bilirubin (Negative) Urine Urobilinogen (Normal) mg/dL Ur Leukocyte Esterase (Negative) Urine Microscopic RBC (0-3) per hpf Urine Microscopic WBC (0-3) per hpf Ur Squamous Epith Cells (None-Few) per lpf Urine Bacteria (None-Few) per hpf Hyaline Casts (None-Few) per lpf 06/18/16 Range/Units 12:09 WBC (4.3-11.1) K/mcL RBC (4.19-5.50) M/mcL Hgb (12.9-16.9) g/dL Hct (37.5-50.1) % MCV (83.0-100.0) fL MCH (28.0-33.3) pg MCHC (31.6-35.5) g/dL RDW (11.5-14.5) % Plt Count (140-400) K/mcL MPV (9.4-12.4) fL Immature Gran % (0-4) % Seg Neutrophils % % Lymphocytes % % Monocytes % % Eosinophils % % Basophils % % Neutrophils # (1.6-8.9) K/mcL Lymphocytes # (0.6-4.6) K/mcL Monocytes # (0.0-1.3) K/mcL Eosinophils # (0.0-0.6) K/mcL Basophils # (0.0-0.2) K/mcL VBG pH (7.32-7.42) pH Units VBG pCO2 (41-51) mmHg VBG pO2 (25-40) mmHg VBG HCO3 (21-27) mEq/L Sodium (136-145) mEq/L Potassium (3.5-4.5) mEq/L Chloride (98-109) mEq/L Carbon Dioxide (19-29) mEq/L BUN (8-26) mg/dL Creatinine (0.72-1.25) mg/dL Est GFR ( Amer) (> 60) Est GFR (Non-Af Amer) (> 60) BUN/Creatinine Ratio (6-26) Glucose (70-99) mg/dL Calculated Osmolality (280-300) Calcium (8.6-10.8) mg/dL Phosphorus (2.3-4.7) mg/dL Magnesium (1.6-2.6) mg/dL Beta-Hydroxybutyric Acd (0.02-0.27) mmol/L Urine Color Yellow (Yellow) Urine Clarity Clear (Clear) Urine pH 6.0 (5.0-8.0) pH Units Ur Specific [place] 1.030 H (1.010-1.025) Urine Protein Trace (Neg-Trace) mg/dL Urine Glucose (UA) >=1000 H (Normal) mg/dL Urine Ketones 80 H (Negative) mg/dL Urine Blood Negative (Negative) Urine Nitrite Negative (Negative) Urine Bilirubin Negative (Negative) Urine Urobilinogen Normal (Normal) mg/dL Ur Leukocyte Esterase Negative (Negative) Urine Microscopic RBC 0-3 (0-3) per hpf Urine Microscopic WBC 0-3 (0-3) per hpf Ur Squamous Epith Cells Moderate H (None-Few) per lpf Urine Bacteria None Seen (None-Few) per hpf Hyaline Casts None Seen (None-Few) per lpf AG: acceptable. Head CT: non-acute. mild chronic white matter microvascular changes. IMP: Uncontrolled DM with ketosis, mild DKA Chronic morbidities DM2 CKDIII Medication non-compliance Inability to take care of self. PVD, with history of CVA. PLAN Admit Can get through this without need for insulin infusion. SC Levemir 30 u BID Moderate dose insulin sliding scale QAC/HS IVF NS @ 125 Sodium bicarb 50 mEQ X 1, bicarb drip for 12 hours. Hold Metformin. Lovenox 40mg SC QD for DVT prophylaxis Recheck BMP and VBG in 6 hours. Continue other medication for chronic medical morbidities. Diabetic diet. I discussed my assessment with the patient, he verbalized understanding and are agreeable to admission. He is high risk for decompensation into full blown DKA. Past Med Surg Social Fam HX - Past Medical History Medical history: CVA, diabetes, other (CKDIII) Psychiatric history: no psych history - Past Surgical History Surgical History: other (DERMATOLOGICAL SURGERY (BACK)) - Social History Smoking Status: Current every day smoker Packs per day: 1 PPD Smokeless Tobacco Status: No Alcohol use: unknown Drug use: unknown Occupational status: unemployed Current living situation: Home - Independent Activity Level: Independent ambulation Recent Out of Country Travel Within the Last 8 Weeks: No Exposure or Possible Exposure to Illness During Travel: No Internal Medicine - H&P: Meds Amlodipine [Norvasc] 5 mg PO DAILY 06/02/16 [History] Folic Acid 2 mg PO DAILY 06/02/16 [History] Gabapentin [Neurontin] 300 mg PO TID 06/02/16 [History] Insulin Glargine [Lantus] 15 unit SQ BID 06/02/16 [History] Isoniazid [Inh] 300 mg PO DAILY 06/02/16 [History] Metformin HCl [Glucophage] 1,000 mg PO BIDWM 06/02/16 [History] Pyridoxine (B-6) [Vitamin B-6] 50 mg PO DAILY 06/02/16 [History] Thiamine (B-1) [Vitamin B-1] 100 mg PO DAILY 06/02/16 [History] Aspirin 81 mg PO DAILY 06/18/16 [History] Mv-Mn/FA/Vit K/Lycop/Lut/Coq10 [Daily Multivitamin Capsule] 1 tab PO DAILY 06/18 [History] Allergies adhesive tape Allergy (Verified 06/18/16 12:57) Rash All Systems PM: A 10-system review of systems was performed and is negative for pertinent findings except as documented above in the HPI. - Constitutional Vitals: Temp Pulse Resp BP Pulse Ox 97.5 F L 73 15 143/92 97 06/18/16 13:41 06/18/16 13:41 06/18/16 13:41 06/18/16 13:41 06/18/16 13:41 Internal Med - H&P Results - Labs CBC & Chem 7: 06/18/16 11:21 06/18/16 11:21
[2016-06-18] MEDS: Gabapentin 300 MG CAPSULE PO SCH ×2 (14:45→21:24)
[2016-06-18] MEDS ORDERED: Insulin LISPRO 300 UNITS/3 ML VIAL SQ SCH ×2 (16:30→21:00)
[2016-06-18] MEDS: Insulin DETEMIR 100 UNIT/ML X5UNITS SQ SCH ×2 (16:45→21:24)
[2016-06-18] MEDS: Nicotine 21 MG PATCH.TD24 TD SCH (17:52)
[2016-06-18 19:21] LABS: VBG HCO3 24.2 mEq/L (21-27); VBG PH 7.31 pH Units (7.32-7.42)
[2016-06-18 19:31] LABS: BUN/Creatinine Ratio 7 (6-26); Blood Urea Nitrogen 10 mg/dL (8-26); Calcium 8.6 mg/dL (8.6-10.8); Carbon Dioxide 21 mEq/L (19-29); Chloride 105 mEq/L (98-109); Glucose 296 mg/dL (70-99); Osmolality,Calculated 290 (280-300); Potassium 3.9 mEq/L (3.5-4.5); Sodium 135 mEq/L (136-145); eGFR For African Americans > 60 (> 60); eGFR For Non-African Americans 51 (> 60)
[2016-06-18] MEDS: Famotidine 20 MG TABLET PO SCH (21:24)
[2016-06-19 04:24] LABS: BUN/Creatinine Ratio 8 (6-26); Blood Urea Nitrogen 8 mg/dL (8-26); Calcium 8.2 mg/dL (8.6-10.8); Carbon Dioxide 19 mEq/L (19-29); Chloride 110 mEq/L (98-109); Glucose 49 mg/dL (70-99); Osmolality,Calculated 282 (280-300); Potassium 3.1 mEq/L (3.5-4.5); Sodium 138 mEq/L (136-145); eGFR For African Americans > 60 (> 60); eGFR For Non-African Americans > 60 (> 60)
[2016-06-19] MEDS: *HR* Enoxaparin 40 MG/0.4 ML SYRINGE SQ SCH (06:19)
[2016-06-19] MEDS: 0.9 % Sodium Chloride 1,000 ML IVC SCH (06:19)
[2016-06-19] MEDS: Nicotine 21 MG PATCH.TD24 TD SCH (09:01)
[2016-06-19] MEDS: Folic Acid 1 MG TABLET PO SCH (09:02)
[2016-06-19] MEDS: Gabapentin 300 MG CAPSULE PO SCH ×3 (09:02→21:41)
[2016-06-19] MEDS: Aspirin 81 MG TAB.CHEW PO SCH (09:02)
[2016-06-19] MEDS: Famotidine 20 MG TABLET PO SCH ×2 (09:02→21:41)
[2016-06-19] MEDS: Thiamine (B-1) 100 MG TABLET PO SCH (09:02)
[2016-06-19] MEDS: Multivit/Ca/Min/Fe/FA 1 TAB TABLET PO SCH (09:02)
[2016-06-19] MEDS: Pyridoxine (B-6) 50 MG TABLET PO SCH (09:02)
[2016-06-19] MEDS: amLODIPine 5 MG TABLET PO SCH (09:02)
[2016-06-19] MEDS: Insulin LISPRO 300 UNITS/3 ML VIAL SQ SCH ×4 (09:03→21:38)
[2016-06-19] MEDS: Insulin DETEMIR 100 UNIT/ML X5UNITS SQ SCH ×2 (09:08→21:41)
[2016-06-19] MEDS ORDERED: Potassium Chloride 40 MEQ, Lidocaine 1% 2 ML in D5% in Water 500 ML IVPB ONE (09:35)
--- NOTE | 2016-06-19 09:41 | Internal Med Progress Note ---
Date of Encounter: 06/19/16 Time of Encounter: 09:37 - Assessment and plan (1) Uncontrolled diabetes mellitus Current Visit: Yes Status: Acute Assessment and plan: Patient with underlying type 2 diabetes, his hemoglobin A1c has been above 14. AG is 9, no signs of DKA at this point. Continue monitoring fingersticks. Continue with insulin therapy, with basal insulin and insulin sliding scale. Avoid metformin while in hospital. Encourage by mouth hydration. Qualifiers: Diabetes mellitus type: type 2 Diabetes mellitus complication status: with unspecified complications Diabetes mellitus emt intermediate insulin use: with emt intermediate use Qualified Code(s): E11.8 - Type 2 diabetes mellitus with unspecified complications; E11.65 - Type 2 diabetes mellitus with hyperglycemia; Z79.4 - alf (current) use of insulin (2) Hypokalemia Current Visit: Yes Status: Acute Assessment and plan: Potassium level 3.1, will supplement potassium via IV today and will give another dose later in the afternoon. We will obtain magnesium levels. I would not be surprised if there is a component of hypomagnesemia. Etiology of hypokalemia could be also secondary to the use of insulin. Will continue patient monitoring closely. We need to monitor electrolytes and kidney function test accordingly. (3) Generalized weakness Current Visit: Yes Status: Acute Assessment and plan: Patient with generalized weakness, especially in both lower extremities, presented after falls in his apartment complex. We will obtain a consultation with both physical therapy and occupational therapy. Vitamin B12 levels, TSH levels requested. environmental services lead evaluation requested. (4) DVT prophylaxis Current Visit: No Status: Acute Assessment and plan: Continue with lovenox. (5) Hyperglycemia Current Visit: No Status: Acute (6) Essential hypertension Current Visit: No Status: Chronic (7) Tobacco abuse disorder Current Visit: No Status: Chronic Assessment and plan: Importance of smoking cessation was stressed. - Subjective Interval history: This is my first encounter with the patient. The patient has been complaining of generalized weakness and had a fall at home. He has a good appetite, denies fever. He is still complaining of weakness in both lower extremities. He is unable to walk. - Constitutional Vitals: Temp Pulse Resp BP Pulse Ox 97.9 F 73 18 133/79 96 06/19/16 07:17 06/19/16 07:17 06/19/16 07:17 06/19/16 07:17 06/19/16 07:17 General appearance: Present: disheveled, A&O X 3, pleasant, obese - Head Head exam: Present: atraumatic, normocephalic - Eye Eye exam: Present: PERRL, conjuntiva pink, sclera anicteric Pupils: Present: PERRL - Neck Neck exam general surgery: Present: supple, trachea midline. Absent: lymphadenopathy - Respiratory Respiratory exam: Present: CTAB. Absent: accessory muscle use, rales, rhonchi, wheezes - Cardiovascular Cardiovascular exam: Present: RRR, +S1, +S2. Absent: diastolic murmur, gallop, rubs, systolic murmur - GI/Abdominal GI/Abdominal exam: Present: normal bowel sounds, soft, no peritoneal signs. Absent: distended, tenderness - Extremities Exam Extremities exam: Present: warm, radial pulses palpable and symetrical. Absent : calf tenderness, cyanotic, pedal edema - Neurological Exam Neurological exam: Present: CN II-XII intact, oriented X3, no focal deficits. Absent: pronater drift, facial droop, speech deficit - Skin Skin exam: Present: dry, intact Internal Medicine: Result - Labs CBC & Chem 7: 06/18/16 11:21 06/19/16 02:49 Labs: BMP 06/18/16 06/19/16 19:11 02:49 Sodium 135 L 138 Potassium 3.9 3.1 L Chloride 105 110 H Carbon Dioxide 21 19 BUN 10 8 Creatinine 1.43 H 0.99 Glucose 296 H 49 L Calcium 8.6 8.2 L Consult Discharge Plan - Plan [facility]errals: [facility] [Primary Care Provider] -
[2016-06-19 09:44] LABS: Magnesium 1.2 mg/dL (1.6-2.6)
[2016-06-19] MEDS: Magnesium Sulfate 2 GM in D5% in Water 100 ML IVPB SCH ×2 (16:16→18:57)
[2016-06-20 05:31] LABS: Basophils # 0.1 K/mcL (0.0-0.2); Basophils % 0.8 %; Eosinophils # 0.5 K/mcL (0.0-0.6); Eosinophils % 7.6 %; Hematocrit 35.3 % (37.5-50.1); Hemoglobin 11.5 g/dL (12.9-16.9); Immature Granulocytes % 0.8 % (0-4); Mean Corpuscular HGB Conc 32.6 g/dL (31.6-35.5); Mean Corpuscular Hemoglobin 29.9 pg (28.0-33.3); Mean Corpuscular Volume 91.7 fL (83.0-100.0); Mean Platelet Volume 10.7 fL (9.4-12.4); Monocytes # 0.4 K/mcL (0.0-1.3); Monocytes % 5.4 %; Neutrophils # 3.5 K/mcL (1.6-8.9); Platelet Count 220 K/mcL (140-400); Red Blood Count 3.85 M/mcL (4.19-5.50); Red Cell Distribution Width 13.1 % (11.5-14.5); Segmented Neutrophils % 54.4 %
[2016-06-20 05:48] LABS: BUN/Creatinine Ratio 7 (6-26); Blood Urea Nitrogen 7 mg/dL (8-26); Calcium 8.4 mg/dL (8.6-10.8); Carbon Dioxide 19 mEq/L (19-29); Chloride 110 mEq/L (98-109); Glucose 133 mg/dL (70-99); Osmolality,Calculated 280 (280-300); Potassium 3.5 mEq/L (3.5-4.5); Sodium 135 mEq/L (136-145); eGFR For African Americans > 60 (> 60); eGFR For Non-African Americans > 60 (> 60)
[2016-06-20 06:09] LABS: Thyroid Stimulating Hormone 0.445 mcIU/mL (0.350-4.840)
[2016-06-20] MEDS: *HR* Enoxaparin 40 MG/0.4 ML SYRINGE SQ SCH (06:21)
--- NOTE | 2016-06-20 07:13 | Electrocardiograph Report ---
[place] [id number] Test Date: 2016-06-18 Pat Name: Louis Fowler Department: 105 Room: 3B Gender: M Pest Control Service Representative: : 1955 Requested By: Bernardino Gaspar Order Number: [id number] Reading MD: Chirag Beach MD Measurements Intervals [place] Rate: 96 P: 37 [place]: 157 QRS: 1 QRSD: 90 T: 33 QT: 353 QTc: 407 Interpretive Statements SINUS RHYTHM Electronically Signed On 06-20-2016 7:11:41 EST by Chirag Beach MD
[2016-06-20] MEDS: Famotidine 20 MG TABLET PO SCH ×2 (08:46→22:06)
[2016-06-20] MEDS: Nicotine 21 MG PATCH.TD24 TD SCH (08:46)
[2016-06-20] MEDS: Gabapentin 300 MG CAPSULE PO SCH ×3 (08:47→22:07)
[2016-06-20] MEDS: Pyridoxine (B-6) 50 MG TABLET PO SCH (08:47)
[2016-06-20] MEDS: Insulin DETEMIR 100 UNIT/ML X5UNITS SQ SCH ×2 (08:47→22:07)
[2016-06-20] MEDS: Multivit/Ca/Min/Fe/FA 1 TAB TABLET PO SCH (08:47)
[2016-06-20] MEDS: Thiamine (B-1) 100 MG TABLET PO SCH (08:47)
[2016-06-20] MEDS: Folic Acid 1 MG TABLET PO SCH (08:47)
[2016-06-20] MEDS: Aspirin 81 MG TAB.CHEW PO SCH (08:47)
[2016-06-20] MEDS: Insulin LISPRO 300 UNITS/3 ML VIAL SQ SCH ×4 (08:48→22:07)
[2016-06-20] MEDS: amLODIPine 5 MG TABLET PO SCH (08:48)
[2016-06-20 11:29] LABS: Alanine Aminotransferase 20 Units/L (0-55); Albumin 2.8 g/dL (3.5-5.0); Albumin/Globulin Ratio 1.1 (1.1-2.2); Alkaline Phosphatase 120 Units/L (38-126); Aspartate Amino Transferase 20 Units/L (5-34); Bilirubin,Direct 0.2 mg/dL (0.0-0.5); Bilirubin,Indirect 0.2 mg/dL (0.0-1.2); Bilirubin,Total 0.4 mg/dL (0.2-1.2); Globulin 2.5 g/dL (2.4-3.5); Total Protein 5.3 g/dL (6.0-8.3)
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
[2016-06-20] MEDS: Magnesium Oxide 400 MG TABLET PO SCH (22:06)
[2016-06-21 01:35] LABS: Amphetamine Screen,Urine Negative ng/mL (Cutoff=1000); Barbiturate Screen,Urine Negative ng/mL (Cutoff=200); Benzodiazepines Screen,Urine Negative ng/mL (Cutoff=200); Cannabinoid Screen,Urine Negative ng/mL (Cutoff = 50); Cocaine Screen,Urine Negative ng/mL (Cutoff= 300); Opiate Screen,Urine Negative ng/mL (Cutoff=300); Phencyclidine Screen,Urine Negative ng/mL (Cutoff=25)
[2016-06-21 06:39] LABS: Basophils % 0.5 %; Eosinophils # 0.6 K/mcL (0.0-0.6); Eosinophils % 9.6 %; Hematocrit 37.8 % (37.5-50.1); Hemoglobin 12.2 g/dL (12.9-16.9); Immature Granulocytes % 0.8 % (0-4); Lymphocytes # 1.8 K/mcL (0.6-4.6); Lymphocytes % 27.8 %; Mean Corpuscular HGB Conc 32.3 g/dL (31.6-35.5); Mean Corpuscular Hemoglobin 29.9 pg (28.0-33.3); Mean Corpuscular Volume 92.6 fL (83.0-100.0); Mean Platelet Volume 10.7 fL (9.4-12.4); Monocytes # 0.4 K/mcL (0.0-1.3); Neutrophils # 3.6 K/mcL (1.6-8.9); Platelet Count 245 K/mcL (140-400); Red Blood Count 4.08 M/mcL (4.19-5.50); Red Cell Distribution Width 13.2 % (11.5-14.5); Segmented Neutrophils % 55.3 %
[2016-06-21] MEDS: *HR* Enoxaparin 40 MG/0.4 ML SYRINGE SQ SCH (06:47)
[2016-06-21 06:56] LABS: BUN/Creatinine Ratio 7 (6-26); Blood Urea Nitrogen 7 mg/dL (8-26); Calcium 8.5 mg/dL (8.6-10.8); Carbon Dioxide 18 mEq/L (19-29); Chloride 111 mEq/L (98-109); Glucose 113 mg/dL (70-99); Magnesium 1.2 mg/dL (1.6-2.6); Osmolality,Calculated 285 (280-300); Potassium 3.6 mEq/L (3.5-4.5); Sodium 138 mEq/L (136-145); eGFR For African Americans > 60 (> 60); eGFR For Non-African Americans > 60 (> 60)
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
[2016-06-21] MEDS: Insulin LISPRO 300 UNITS/3 ML VIAL SQ SCH ×4 (08:46→21:37)
[2016-06-21] MEDS: Nicotine 21 MG PATCH.TD24 TD SCH (09:42)
[2016-06-21] MEDS: Gabapentin 300 MG CAPSULE PO SCH ×3 (09:45→21:37)
[2016-06-21] MEDS: Folic Acid 1 MG TABLET PO SCH (09:45)
[2016-06-21] MEDS: Thiamine (B-1) 100 MG TABLET PO SCH (09:46)
[2016-06-21] MEDS: Famotidine 20 MG TABLET PO SCH ×2 (09:46→21:37)
[2016-06-21] MEDS: Aspirin 81 MG TAB.CHEW PO SCH (09:46)
[2016-06-21] MEDS: Multivit/Ca/Min/Fe/FA 1 TAB TABLET PO SCH (09:46)
[2016-06-21] MEDS: amLODIPine 5 MG TABLET PO SCH (09:47)
[2016-06-21] MEDS: Magnesium Oxide 400 MG TABLET PO SCH ×2 (09:47→21:37)
[2016-06-21] MEDS: Pyridoxine (B-6) 50 MG TABLET PO SCH (09:47)
[2016-06-21] MEDS: Insulin DETEMIR 100 UNIT/ML X5UNITS SQ SCH ×2 (10:35→21:37)
[2016-06-22] MEDS: *HR* Enoxaparin 40 MG/0.4 ML SYRINGE SQ SCH (06:34)
[2016-06-22] MEDS: Insulin LISPRO 300 UNITS/3 ML VIAL SQ SCH ×4 (07:51→21:26)
[2016-06-22] MEDS: Folic Acid 1 MG TABLET PO SCH (09:10)
[2016-06-22] MEDS: Famotidine 20 MG TABLET PO SCH ×2 (09:10→21:27)
[2016-06-22] MEDS: amLODIPine 5 MG TABLET PO SCH (09:10)
[2016-06-22] MEDS: Pyridoxine (B-6) 50 MG TABLET PO SCH (09:11)
[2016-06-22] MEDS: Magnesium Oxide 400 MG TABLET PO SCH ×2 (09:11→21:27)
[2016-06-22] MEDS: Gabapentin 300 MG CAPSULE PO SCH ×3 (09:11→21:27)
[2016-06-22] MEDS: Multivit/Ca/Min/Fe/FA 1 TAB TABLET PO SCH (09:11)
[2016-06-22] MEDS: Thiamine (B-1) 100 MG TABLET PO SCH (09:11)
[2016-06-22] MEDS: Nicotine 21 MG PATCH.TD24 TD SCH (09:11)
[2016-06-22] MEDS: Aspirin 81 MG TAB.CHEW PO SCH (09:11)
[2016-06-22] MEDS: Insulin DETEMIR 100 UNIT/ML X5UNITS SQ SCH ×2 (09:12→21:26)
--- NOTE | 2016-06-22 14:28 | Internal Med Progress Note ---
<Gael iPtt - Last Filed: 06/22/16 14:25> Date of Encounter: 06/22/16 Time of Encounter: 14:27 - Assessment and plan (1) Generalized weakness Current Visit: Yes Status: Acute Assessment and plan: Patient with generalized weakness and ataxic gait presented after fall in his apartment complex. CT head negative for acute changes Physical exam: L4 and S1 reflexes 2/4, Lower extremity stregth 5/5 B/L (LE hip flexor, extensors, knee flexor, extensors, plantar and dorsiflexion) B12 and TSH normal PT recommends skilled rehab. Trying to get him bed at [place] (pending) OT cleared patient (2) Hypokalemia Current Visit: Yes Status: Acute Assessment and plan: Resolved. magnesium is 1.2. WIll continue mag-ox 400 BID. (3) Uncontrolled diabetes mellitus Current Visit: Yes Status: Acute Assessment and plan: type 2 diabetes, his hemoglobin A1c has been above 14. AG is 9, Anion GAP was 9 on admission. NO signs of DKA. Glucose controlled Continue monitoring fingersticks. Increased basal insulin to 30BID Continue insulin sliding scale. Continue diabetic diet. Qualifiers: Diabetes mellitus type: type 2 Diabetes mellitus complication status: with unspecified complications Diabetes mellitus mcc insulin use: with terminal gauger supervisor use Qualified Code(s): E11.8 - Type 2 diabetes mellitus with unspecified complications; E11.65 - Type 2 diabetes mellitus with hyperglycemia; Z79.4 - manager terminal (current) use of insulin (4) DVT prophylaxis Current Visit: No Status: Acute Assessment and plan: Continue with lovenox. (5) Essential hypertension Current Visit: No Status: Chronic Assessment and plan: BP controlled. Continue lisinopril. (6) Tobacco abuse disorder Current Visit: No Status: Chronic Assessment and plan: Importance of smoking cessation was stressed. Patient does not want to quit as of now. - Subjective Interval history: Patient says his lower extremity weakness improved. He was able to walk to bathroom with assistance. he leonard CP, palpitations, N/V/D, abdominal pain, lower extremity pain, chills. - Constitutional Vitals: Temp Pulse Resp BP Pulse Ox 97.7 F 90 15 119/69 95 06/22/16 11:02 06/22/16 11:02 06/22/16 11:02 06/22/16 11:02 06/22/16 11:02 General appearance: Present: disheveled, A&O X 3, pleasant, obese - Respiratory Respiratory exam: Present: CTAB. Absent: accessory muscle use, rales, rhonchi, wheezes - Cardiovascular Cardiovascular exam: Present: RRR, +S1, +S2. Absent: diastolic murmur, gallop, rubs, systolic murmur - GI/Abdominal GI/Abdominal exam: Present: normal bowel sounds, soft, no peritoneal signs. Absent: distended, tenderness - Extremities Exam Extremities exam: Present: warm, radial pulses palpable and symetrical. Absent : calf tenderness, cyanotic, pedal edema - Psychiatric Psychiatric exam: Present: flat affect Internal Medicine: Result - Labs CBC & Chem 7: 06/21/16 05:35 06/21/16 05:35 Consult Discharge Plan - Plan Instructions: Hypokalemia (DC), Diabetes Mellitus Type 2 in Adults (DC) Referrals: [facility] [Primary Care Provider] - <Mikal Peacock - Last Filed: 06/22/16 15:50> - Constitutional Vitals: Temp Pulse Resp BP Pulse Ox 98.1 F 81 19 105/70 96 06/22/16 15:37 06/22/16 15:37 06/22/16 15:37 06/22/16 15:37 06/22/16 15:37 Internal Medicine: Result - Labs CBC & Chem 7: 06/21/16 05:35 06/21/16 05:35 - Attending Attestation I examined this patient and my medical decision-making was reviewed with the CUFF MAKER/PA/Advanced Practice Nurse/Resident Physician. I agree with the documented findings, disposition and treatment plan as described except to the extent set forth below. 60 Y/O Male with uncontrolled diabetes mellitus, anxiety disorder, depression He is being managed for uncontrolled diabetes, A1c greater than 14, generalized weakness extremity weakness. Patient also has latent tuberculosis and is on management with isoniazid. Patient is seen at bedside sitting up in bed in no form of distress and has no new complaints. Physical exam unremarkable, vital signs are stable. PT has recommended inpatient rehabilitation, OT has no recommendations. [facility] Patient has denied suicidal ideation to both hospital staff and inpatient staff ability. However patient continues to have masked flat affect. Continue current management Rest of details as in resident's documentation
[2016-06-23] MEDS: *HR* Enoxaparin 40 MG/0.4 ML SYRINGE SQ SCH (05:56)
[2016-06-23] MEDS: Nicotine 21 MG PATCH.TD24 TD SCH (08:23)
[2016-06-23] MEDS: Insulin DETEMIR 100 UNIT/ML X5UNITS SQ SCH (08:23)
[2016-06-23] MEDS: amLODIPine 5 MG TABLET PO SCH (08:24)
[2016-06-23] MEDS: Folic Acid 1 MG TABLET PO SCH (08:24)
[2016-06-23] MEDS: Aspirin 81 MG TAB.CHEW PO SCH (08:24)
[2016-06-23] MEDS: Pyridoxine (B-6) 50 MG TABLET PO SCH (08:24)
[2016-06-23] MEDS: Famotidine 20 MG TABLET PO SCH (08:24)
[2016-06-23] MEDS: Multivit/Ca/Min/Fe/FA 1 TAB TABLET PO SCH (08:24)
[2016-06-23] MEDS: Gabapentin 300 MG CAPSULE PO SCH ×2 (08:24→14:27)
[2016-06-23] MEDS: Thiamine (B-1) 100 MG TABLET PO SCH (08:24)
[2016-06-23] MEDS: Magnesium Oxide 400 MG TABLET PO SCH (08:24)
[2016-06-23] MEDS: Insulin LISPRO 300 UNITS/3 ML VIAL SQ SCH ×3 (08:29→17:55)
[2016-06-23 10:23] VITALS: BP 128/86
--- NOTE | 2016-06-23 10:47 | Internal Med Progress Note ---
<Gael Pitt - Last Filed: 06/23/16 10:45> Date of Encounter: 06/23/16 Time of Encounter: 10:45 - Assessment and plan (1) Generalized weakness Current Visit: Yes Status: Acute Assessment and plan: Patient with generalized weakness and ataxic gait presented after fall in his apartment complex. CT head negative for acute changes Physical exam: L4 and S1 reflexes 2/4, Lower extremity stregth 5/5 B/L (LE hip flexor, extensors, knee flexor, extensors, plantar and dorsiflexion) B12 and TSH normal PT recommends skilled rehab. Trying to get him bed at [place] (pending) OT cleared patient (2) Hypokalemia Current Visit: Yes Status: Acute Assessment and plan: Resolved. magnesium is 1.2. WIll continue mag-ox 400 BID. (3) Uncontrolled diabetes mellitus Current Visit: Yes Status: Acute Assessment and plan: type 2 diabetes, his hemoglobin A1c has been above 14. AG is 9, Anion GAP was 9 on admission. NO signs of DKA. Glucose controlled Continue monitoring fingersticks. Increased basal insulin to 30BID Continue insulin sliding scale. Continue diabetic diet. Qualifiers: Diabetes mellitus type: type 2 Diabetes mellitus complication status: with unspecified complications Diabetes mellitus fpc insulin use: with intermediate card tender use Qualified Code(s): E11.8 - Type 2 diabetes mellitus with unspecified complications; E11.65 - Type 2 diabetes mellitus with hyperglycemia; Z79.4 - medical terminologist (current) use of insulin (4) DVT prophylaxis Current Visit: No Status: Acute Assessment and plan: Continue with lovenox. (5) Essential hypertension Current Visit: No Status: Chronic Assessment and plan: BP controlled. Continue lisinopril. (6) Tobacco abuse disorder Current Visit: No Status: Chronic Assessment and plan: Importance of smoking cessation was stressed. Patient does not want to quit as of now. - Subjective Interval history: Patient looked disheveled and he was felt of urine today. Overnight patient yelled out profanities because his cold. He is alert oriented 3. He was not agitated during my encounter today. - Constitutional Vitals: Temp Pulse Resp BP Pulse Ox 97.4 F L 84 16 128/86 94 L 06/23/16 10:22 06/23/16 10:22 06/23/16 10:22 06/23/16 10:22 06/23/16 10:22 General appearance: Present: disheveled, A&O X 3, pleasant, obese - Respiratory Respiratory exam: Present: CTAB. Absent: accessory muscle use, rales, rhonchi, wheezes - Cardiovascular Cardiovascular exam: Present: RRR, +S1, +S2. Absent: diastolic murmur, gallop, rubs, systolic murmur - GI/Abdominal GI/Abdominal exam: Present: normal bowel sounds, soft, no peritoneal signs. Absent: distended, tenderness - Extremities Exam Extremities exam: Present: warm, radial pulses palpable and symetrical. Absent : calf tenderness, cyanotic, pedal edema - Neurological Exam Neurological exam: Present: alert, oriented X3. Absent: altered - Psychiatric Psychiatric exam: Present: flat affect. Absent: agitated Internal Medicine: Result - Labs CBC & Chem 7: 06/21/16 05:35 06/21/16 05:35 Consult Discharge Plan - Plan Instructions: Hypokalemia (DC), Diabetes Mellitus Type 2 in Adults (DC) Referrals: [facility] [Primary Care Provider] - <Mikal Peacock T - Last Filed: 06/23/16 15:23> - Constitutional Vitals: Temp Pulse Resp BP Pulse Ox 97.4 F L 84 16 128/86 94 L 06/23/16 10:22 06/23/16 10:22 06/23/16 10:22 06/23/16 10:22 06/23/16 10:22 Internal Medicine: Result - Labs CBC & Chem 7: 06/21/16 05:35 06/21/16 05:35 - Attending Attestation I examined this patient and my medical decision-making was reviewed with the CORRECTION WORKER/PA/Advanced Practice Nurse/Resident Physician. I agree with the documented findings, disposition and treatment plan as described except to the extent set forth below. 60 Y/O Male with uncontrolled diabetes mellitus, anxiety disorder, depression He is being managed for uncontrolled diabetes, A1c greater than 14, generalized weakness extremity weakness. Patient also has latent tuberculosis and is on management with isoniazid. Patient is seen at bedside sitting up in bed, his sister is in the room with him , cracking jokes He is in no form of distress and has no new complaints. Physical exam unremarkable, vital signs are stable. PT has recommended inpatient rehabilitation, OT has no recommendations. [facility] Mood is better today Continue current management Rest of details as in resident's documentation
--- NOTE | 2016-06-23 17:36 | Physician Discharge Referral ---
ExtendedCare Referral Info Transfer To: SNF/ECF Provider in Charge after Transfer: PCP Institutional Level of Care: Skilled - Diagnosis (1) Generalized weakness Priority: Primary Status: Acute (2) Hypokalemia Priority: Primary Status: Resolved (3) Uncontrolled diabetes mellitus Priority: Primary Status: Acute (4) CKD (chronic kidney disease) stage 3, GFR 30-59 ml/min Priority: Secondary Status: Chronic (5) Essential hypertension Priority: Secondary Status: Chronic (6) Tobacco abuse disorder Priority: Secondary Status: Chronic Prognosis: Good Aware of Diagnosis: Patient Aware of Prognosis: Patient - Transfer Medications Home Medications: Amlodipine [Norvasc] 5 mg PO DAILY 06/02/16 [History] Folic Acid 2 mg PO DAILY 06/02/16 [History] Gabapentin [Neurontin] 300 mg PO TID 06/02/16 [History] Insulin Glargine [Lantus] 15 unit SQ BID 06/02/16 [History] Isoniazid [Inh] 300 mg PO DAILY 06/02/16 [History] Metformin HCl [Glucophage] 1,000 mg PO BIDWM 06/02/16 [History] Pyridoxine (B-6) [Vitamin B-6] 50 mg PO DAILY 06/02/16 [History] Thiamine (B-1) [Vitamin B-1] 100 mg PO DAILY 06/02/16 [History] Aspirin 81 mg PO DAILY 06/18/16 [History] Mv-Mn/FA/Vit K/Lycop/Lut/Coq10 [Daily Multivitamin Capsule] 1 tab PO DAILY 06/18 [History] Allergies/Adverse Reactions: Allergies adhesive tape Allergy (Verified 06/18/16 12:57) Rash - Respiratory Orders Smoking Cessation: Smoking cessation has been advised. For more information, call the [place] Tobacco Quit Line at 4-253-QUYW-NOW. - Advance Directives Code Status: Full Code - Mobility Orders Ambulate - Rehabiliation Orders Rehab Potential: Good - Diet Orders No Concentrated Sweets (ADA diet) CERTIFICATION: I certify that the transfer of the above named patient to an Extended Care Facility is necessary for the continuing treatment of the diagnosis listed. The above information is true and accurate reflection of patient's current condition. Confidential - Redisclosure prohibited without a patient's written consent.
== END 2016-06-23 18:36 | DRG 639 ==
LOC: 3BNU 10:38 → EMEROO 10:38 → 3BNU 13:24 → SUATTDRO 16:23
PROVIDERS: ADMIT Nurse Practitioner Family; ATTEND Internal Medicine

== ENCOUNTER 2020-04-27 06:26 | Inpatient (IN) ==
[2020-04-27] MEDS ORDERED: Naloxone 0.4 MG/ML INJ IVP PRN (09:18)
[2020-04-27] MEDS ORDERED: Ondansetron 4 MG/2 ML VIAL IVP PRN (09:18)
[2020-04-27] MEDS ORDERED: Dextrose Gel 15 GM/37.5 ML TUBE PO PRN ×2 (09:20)
[2020-04-27] MEDS ORDERED: D5% in Water 1,000 ML IVC PRN (09:20)
[2020-04-27] MEDS ORDERED: *HR* Dextrose 50 % in Water (Vial) 50 ML VIAL IVP PRN (09:20)
[2020-04-27] MEDS ORDERED: *HR* LORazepam 2 MG/ML VIAL IVP PRN (09:21)
[2020-04-27] MEDS ORDERED: Benzonatate 100 MG CAPSULE PO PRN (09:21)
[2020-04-27] MEDS ORDERED: Acetaminophen IV 1,000 MG/100 ML BAG IVPB ONE ×2 (10:28→18:31)
[2020-04-27 11:16] LABS: ABG Base Excess 2 mEq/L (-2 to 3); ABG HCO3 29 mEq/L (21-27); ABG Oxygen Saturation 92 % (95-98); ABG PCO2 54 mmHg (35-45); ABG PH 7.34 pH Units (7.32-7.45); ABG PO2 70 mmHg (85-104); ABG TCO2 31 mEq/L (20-26)
[2020-04-27] MEDS ORDERED: Insulin LISPRO 300 UNITS/3 ML VIAL SUBQ SCH (11:30)
[2020-04-27] MEDS: cefTRIAXone 1,000 MG in Water for inj. (sterile) 10 ML IVP SCH (11:33)
[2020-04-27] MEDS: Insulin LISPRO 300 UNITS/3 ML VIAL SUBQ SCH ×3 (12:04→22:20)
[2020-04-27 12:51] LABS: C-Reactive Protein 43 mg/L (Less than 10); Lactate Dehydrogenase 288 Units/L (140-271)
[2020-04-27] MEDS ORDERED: Furosemide 20 MG/2 ML VIAL IVP ONE (14:26)
[2020-04-27] MEDS ORDERED: *HR* Heparin 5,000 UNIT/ML VIAL SQ SCH (15:00)
[2020-04-27] MEDS: Ipratropium 1 PUFF INHALER IH SCH ×3 (16:25→23:31)
[2020-04-27] MEDS: Azithromycin 500 MG in 0.9 % Sodium Chloride 250 ML IVPB SCH (17:12)
[2020-04-27] MEDS: *HR* Heparin 5,000 UNIT/ML VIAL SQ SCH (22:19)
[2020-04-27] MEDS: Insulin DETEMIR 100 UNIT/ML X5UNITS SUBQ SCH (22:19)
[2020-04-27] MEDS: Divalproex (12 HR) 250 MG TABLET PO SCH (22:19)
[2020-04-28] MEDS: Insulin LISPRO 300 UNITS/3 ML VIAL SUBQ SCH ×5 (00:45→17:12)
[2020-04-28] MEDS ORDERED: Morphine Sulfate 2 MG/ML SYRINGE IVP ONE (01:35)
[2020-04-28] MEDS: Ipratropium 1 PUFF INHALER IH SCH ×7 (03:40→23:51)
[2020-04-28] MEDS ORDERED: Acetaminophen IV 1,000 MG/100 ML BAG IVPB STA (04:57)
[2020-04-28] MEDS: *HR* Heparin 5,000 UNIT/ML VIAL SQ SCH ×3 (05:33→20:54)
[2020-04-28 06:04] LABS: Basophils % 0.2 %; Eosinophils % 0.2 %; Hematocrit 43.1 % (37.5-50.1); Hemoglobin 13.1 g/dL (12.9-16.9); Immature Granulocytes % 1.6 % (0-4); Lymphocytes # 1.6 K/mcL (0.6-4.6); Lymphocytes % 7.7 %; Mean Corpuscular HGB Conc 30.4 g/dL (31.6-35.5); Mean Corpuscular Hemoglobin 28.7 pg (28.0-33.3); Mean Corpuscular Volume 94.3 fL (83.0-100.0); Monocytes # 1.6 K/mcL (0.0-1.3); Monocytes % 7.7 %; Nucleated Red Blood Cells 0.1 /100 WBC (0); Platelet Count 178 K/mcL (140-400); Red Blood Count 4.57 M/mcL (4.19-5.50); Red Cell Distribution Width 15.2 % (11.5-14.5); Segmented Neutrophils % 82.6 %; White Blood Count 20.6 K/mcL (4.3-11.1)
[2020-04-28 06:07] LABS: INR 1.1; Prothrombin Time 12.3 Seconds (9.4-12.1)
[2020-04-28 06:20] LABS: Calcium 8.6 mg/dL (8.6-10.3); Potassium 4.6 mEq/L (3.5-5.1)
[2020-04-28] MEDS: Insulin DETEMIR 100 UNIT/ML X5UNITS SUBQ SCH ×2 (08:02→21:25)
[2020-04-28] MEDS: Divalproex Sodium 125 MG Sprinkle Capsule (DR) PO SCH (08:03)
[2020-04-28] MEDS: Aspirin 81 MG TAB.CHEW PO SCH (08:03)
[2020-04-28] MEDS: Metoprolol XL (24 HR) Succ 50 MG TAB.ER.24H PO SCH (08:03)
[2020-04-28] MEDS: Cholecalciferol (D-3) 1,000 UNIT (25MCG) TABLET PO SCH (08:03)
[2020-04-28] MEDS: cefTRIAXone 1,000 MG in Water for inj. (sterile) 10 ML IVP SCH (08:04)
[2020-04-28] MEDS: Dexamethasone Sodium Phos/PF 10 MG/ML VIAL IVP SCH (08:05)
[2020-04-28] MEDS: Dexmedetomidine HCl 400 MCG/100 ML MLS IVC SCH ×2 (10:34→17:20)
[2020-04-28] MEDS: Furosemide 40 MG/4 ML VIAL IVP SCH ×2 (13:36→20:53)
[2020-04-28] MEDS: Azithromycin 500 MG in 0.9 % Sodium Chloride 250 ML IVPB SCH (17:10)
[2020-04-28] MEDS: cloZAPine 25 MG TABLET PO SCH (20:53)
[2020-04-28] MEDS: Divalproex (12 HR) 250 MG TABLET PO SCH (20:53)
[2020-04-28] MEDS ORDERED: Acetaminophen 325 MG TABLET PO PRN (21:50)
[2020-04-29] MEDS: Dexmedetomidine HCl 400 MCG/100 ML MLS IVC SCH ×6 (00:12→23:29)
[2020-04-29] MEDS: Insulin LISPRO 300 UNITS/3 ML VIAL SUBQ SCH ×4 (00:20→17:41)
[2020-04-29 03:33] LABS: Hematocrit 38.9 % (37.5-50.1); Mean Corpuscular HGB Conc 29.6 g/dL (31.6-35.5); Mean Corpuscular Hemoglobin 28.1 pg (28.0-33.3); Mean Corpuscular Volume 95.1 fL (83.0-100.0); Mean Platelet Volume 10.1 fL (9.4-12.4); Platelet Count 190 K/mcL (140-400); Red Blood Count 4.09 M/mcL (4.19-5.50); White Blood Count 21.1 K/mcL (4.3-11.1)
[2020-04-29] MEDS: Ipratropium 1 PUFF INHALER IH SCH ×6 (03:33→23:11)
[2020-04-29 03:38] LABS: Hemoglobin 11.5 g/dL (12.9-16.9)
[2020-04-29 03:52] LABS: Calcium 8.4 mg/dL (8.6-10.3); Magnesium 2.5 mg/dL (1.6-2.6); Potassium 4.5 mEq/L (3.5-5.1)
[2020-04-29] MEDS: *HR* Heparin 5,000 UNIT/ML VIAL SQ SCH ×3 (05:58→22:40)
[2020-04-29] MEDS: Divalproex Sodium 125 MG Sprinkle Capsule (DR) PO SCH (07:48)
[2020-04-29] MEDS: Furosemide 40 MG/4 ML VIAL IVP SCH ×2 (07:48→19:41)
[2020-04-29] MEDS: Metoprolol XL (24 HR) Succ 50 MG TAB.ER.24H PO SCH (07:48)
[2020-04-29] MEDS: Cholecalciferol (D-3) 1,000 UNIT (25MCG) TABLET PO SCH (07:48)
[2020-04-29] MEDS: Aspirin 81 MG TAB.CHEW PO SCH (07:48)
[2020-04-29] MEDS: Dexamethasone Sodium Phos/PF 10 MG/ML VIAL IVP SCH (07:49)
[2020-04-29] MEDS: Insulin DETEMIR 100 UNIT/ML X5UNITS SUBQ SCH ×2 (07:50→21:13)
[2020-04-29] MEDS ORDERED: cefTRIAXone 2,000 MG in Water for inj. (sterile) 20 ML IVP SCH (08:00)
[2020-04-29] MEDS ORDERED: Vancomycin (wt based) 1,000 MG VIAL IVPB SCH (10:00)
[2020-04-29] MEDS ORDERED: Vancomycin 2,000 MG/520 ML IV.SOLN IVPB ONE (10:04)
[2020-04-29] MEDS: Cefepime HCl 2,000 MG in Water for inj. (sterile) 20 ML IVP SCH ×2 (10:22→22:39)
[2020-04-29] MEDS: Doxycycline 100 MG in 0.9 % Sodium Chloride Mini Bag 100 ML IVPB SCH (17:39)
[2020-04-29] MEDS: Divalproex (12 HR) 250 MG TABLET PO SCH (21:11)
[2020-04-29] MEDS: cloZAPine 25 MG TABLET PO SCH (21:11)
[2020-04-30] MEDS ORDERED: Acetaminophen IV 1,000 MG/100 ML BAG IVPB STA (00:42)
[2020-04-30] MEDS: Dexmedetomidine HCl 400 MCG/100 ML MLS IVC SCH ×4 (02:10→12:37)
[2020-04-30] MEDS: Ipratropium 1 PUFF INHALER IH SCH ×4 (03:54→15:47)
[2020-04-30] MEDS: *HR* Heparin 5,000 UNIT/ML VIAL SQ SCH ×2 (05:01→12:41)
[2020-04-30] MEDS: Doxycycline 100 MG in 0.9 % Sodium Chloride Mini Bag 100 ML IVPB SCH (05:15)
[2020-04-30 06:09] LABS: Albumin 3.2 g/dL (3.5-5.7); Albumin/Globulin Ratio 0.9 (1.1-2.2); Bilirubin,Direct 0.2 mg/dL (0.0-0.2); Bilirubin,Indirect 0.5 mg/dL (0.0-1.0); Bilirubin,Total 0.7 mg/dL (0.3-1.0); Globulin 3.6 g/dL (2.4-3.5); Total Protein 6.8 g/dL (6.4-8.9)
[2020-04-30 06:10] LABS: Calcium 8.9 mg/dL (8.6-10.3); Magnesium 2.6 mg/dL (1.6-2.6); Phosphorous 2.9 mg/dL (2.7-4.5); Potassium 4.3 mEq/L (3.5-5.1)
[2020-04-30 06:11] LABS: Hematocrit 40.8 % (37.5-50.1); Hemoglobin 12.7 g/dL (12.9-16.9); Mean Corpuscular HGB Conc 31.1 g/dL (31.6-35.5); Mean Corpuscular Hemoglobin 29.3 pg (28.0-33.3); Mean Corpuscular Volume 94.2 fL (83.0-100.0); Mean Platelet Volume 10.5 fL (9.4-12.4); Platelet Count 307 K/mcL (140-400); Red Blood Count 4.33 M/mcL (4.19-5.50); Red Cell Distribution Width 15.3 % (11.5-14.5)
[2020-04-30] MEDS: Insulin LISPRO 300 UNITS/3 ML VIAL SUBQ SCH ×2 (08:09→12:36)
[2020-04-30] MEDS: Dexamethasone Sodium Phos/PF 10 MG/ML VIAL IVP SCH (08:10)
[2020-04-30] MEDS: Cholecalciferol (D-3) 1,000 UNIT (25MCG) TABLET PO SCH (08:10)
[2020-04-30] MEDS: Cefepime HCl 2,000 MG in Water for inj. (sterile) 20 ML IVP SCH (08:10)
[2020-04-30] MEDS: Divalproex Sodium 125 MG Sprinkle Capsule (DR) PO SCH (08:10)
[2020-04-30] MEDS: Metoprolol XL (24 HR) Succ 50 MG TAB.ER.24H PO SCH (08:10)
[2020-04-30] MEDS: Aspirin 81 MG TAB.CHEW PO SCH (08:10)
[2020-04-30] MEDS ORDERED: Furosemide 20 MG/2 ML VIAL IVP SCH (09:00)
[2020-04-30] MEDS ORDERED: Insulin DETEMIR 100 UNIT/ML X5UNITS SUBQ SCH ×2 (09:00→21:00)
[2020-04-30] MEDS ORDERED: Haloperidol Lactate 5 MG/ML VIAL IVP PRN (10:46)
[2020-04-30] MEDS ORDERED: Acetaminophen IV 1,000 MG/100 ML BAG IVPB PRN (10:56)
[2020-04-30] MEDS ORDERED: Vancomycin 1,500 MG/265 ML IV.SOLN IVPB SCH (11:00)
[2020-04-30] MEDS ORDERED: *HR* Metoprolol 5 MG/5 ML VIAL IVP PRN (14:00)
[2020-04-30] MEDS ORDERED: Haloperidol Lactate 5 MG/ML VIAL IVP ONE (14:07)
[2020-04-30] MEDS ORDERED: NIFEdipine XL (24 HR) 30 MG TAB.ER.24 PO SCH (15:00)
[2020-04-30] MEDS ORDERED: *HR* LORazepam 0.5 MG TABLET PO PRN (15:05)
[2020-04-30] MEDS ORDERED: *HR* Heparin 5,000 UNIT/ML VIAL IVP PRN ×2 (16:00)
[2020-04-30] MEDS ORDERED: DilTIAZem 50 MG/50 ML IV.SOLN IVC SCH (16:00)
[2020-04-30] MEDS ORDERED: *HR* Heparin 5,000 UNIT/ML VIAL IVP ONE (16:00)
[2020-04-30] MEDS ORDERED: Heparin 25,000UNIT/250ML 1/2NS 25,000 UNIT/250 ML IV.SOLN IVC SCH (16:00)
[2020-04-30] MEDS ORDERED: Amiodarone Premix 360 MG/200 ML BAG IVC ONE ×2 (16:14→16:16)
[2020-04-30] MEDS ORDERED: Amiodarone Premix 150 MG/100 ML BAG IVPB ONE ×2 (16:14→16:16)
[2020-04-30 16:27] LABS: INR 1.1; Prothrombin Time 12.5 Seconds (9.4-12.1)
[2020-04-30] MEDS ORDERED: Morphine Sulfate 2 MG/ML SYRINGE IVP ONE (16:29)
[2020-04-30 16:40] LABS: Heparin anti-factor XA UFH 0.1 IU/mL (0.30-0.70)
[2020-04-30] MEDS ORDERED: *HR* LORazepam 2 MG/ML VIAL IVP SCH (16:45)
[2020-04-30] MEDS ORDERED: Morphine Sulfate 2 MG/ML SYRINGE IVP SCH (16:45)
[2020-04-30] MEDS: *HR* LORazepam 2 MG/ML VIAL IVP PRN ×5 (16:45→22:15)
[2020-04-30] MEDS: Morphine Sulfate 2 MG/ML SYRINGE IVP PRN ×4 (17:18→22:15)
[2020-04-30] MEDS ORDERED: Amiodarone Premix 360 MG/200 ML BAG IVC SCH ×2 (22:14→22:16)
[2020-05-01] MEDS: *HR* LORazepam 2 MG/ML VIAL IVP PRN ×3 (00:30→03:21)
[2020-05-01] MEDS: Morphine Sulfate 2 MG/ML SYRINGE IVP PRN ×3 (00:31→03:21)
[2020-05-01 01:19] VITALS: BP 90/55
[2020-05-01] MEDS ORDERED: Metoprolol XL (24 HR) Succ 50 MG TAB.ER.24H PO SCH (09:00)
[2020-05-02] MEDS ORDERED: Dexamethasone Sodium Phos/PF 10 MG/ML VIAL IVP SCH (09:00)
== END 2020-05-01 05:35 | disposition expired | DRG 871 ==
LOC: 2NENU → SUATTDRO 04-28 07:47
PROVIDERS: ADMIT Internal Medicine; ATTEND Internal Medicine